=== PATIENT | male | born 1950 | race Caucasian/White ===

== ENCOUNTER 2018-06-05 09:58 | Emergency (ER) | payer OTHER, SELFPAY ==
[2018-06-05 10:02] VITALS: BP 157/81; PULSE 72; RESP 16; TEMP 36.4; O2SAT 95; BMI 26.9
--- NOTE | 2018-06-05 10:30 | CT_ITS ---
STUDY: CT ABDOMEN AND PELVIS WITH CONTRAST REASON FOR EXAM: Male, 67 years old. Right inguinal pain. History of prior right inguinal hernia repair. RADIATION DOSAGE (If Supplied By Facility): CTDIvol = ( 16.03 ) mGy, DLP = ( 932.59 ) mGycm TECHNIQUE: Transaxial images were obtained from the dome of the diaphragm to the symphysis pubis without oral contrast. 100 ml of Isovue 300 contrast was administered. Sagittal and coronal images were reconstructed. Individualized dose optimization techniques were used for this CT. COMPARISON: None. FINDINGS: The visualized lung bases are unremarkable. The visualized portions of the heart are within normal limits. Tiny cysts are seen in the right and left lobe of the liver There are multiple small gallstones. Normal spleen. Normal pancreas. Normal bilateral adrenal glands. There is a 1.3 cm cyst in the lower pole of the right kidney. Normal left kidney. Normal visualized stomach. Normal small intestine. The colon is not adequately distended although there is evidence of mucosal edema of the splenic flexure and descending colon. Early colitis should be ruled out. There are multiple colonic diverticula consistent with diverticulosis. The appendix is visualized and appears normal. There is diffuse atherosclerotic calcification of the abdominal aorta, without a demonstrated aneurysm. Normal inferior vena cava. Normal retroperitoneum. Normal urinary bladder. There are prostatic calcifications. There is a small umbilical hernia containing fat. There are degenerative changes of the visualized lumbar spine. CT/Abdomen/Pelvis W IV Cont ONLY IMPRESSION: Findings suggestive of a colitis involving the splenic flexure and descending colon. Sigmoid diverticulosis. Small hepatic cysts. Electronically Signed: Dave Waggoner MD at 12:32 EST Tel [phone], Service support ,
[2018-06-05] MEDS: 0.9% Normal Saline 1,000 ML 1000 ML IV (10:43)
[2018-06-05 10:54] LABS: Absolute Lymphocyte Count 0.95 X10^3/ul (0.83-4.51); Absolute Neutrophil Count 4.2 X10^3/uL (2.0-7.7); Basophil# 0.03 X10^3/uL; Basophil% 0.5 % (0-1); Eosinophil# 0.11 X10^3/uL; Eosinophils% 1.9 % (0-5); Hemoglobin 14.2 g/dl (13.0-16.5); Lymphocyte # 0.95 X10^3/ul (4.0); Lymphocyte % 16.7 % (19-41); Mean Corp Hgb Conc 33.8 g/gl (32-36); Mean Corpuscular Hgb 33.5 pg (27.0-32.0); Mean Corpuscular Volume 99.1 fL (80-94); Mean Platelet Vol. 9.1 fl (6.2-12.0); Monocyte# 0.36 X10^3/uL; Monocyte% 6.3 % (0-10); Neutrophil # 4.24 X10^3/uL (2.7-7.7); Neutrophil % 74.6 % (47-70); Platelet Count 176 K/mm3 (150-450); RBC Distribution Width SD 50.2 fl (35.1-43.9); Red Blood Count 4.24 M/mm3 (4.6-6.2); White Blood Count 5.7 K/mm3 (4.4-11.0)
[2018-06-05 10:58] LABS: POSITIVE COUNT NO; POSITIVE DIFFERENTIAL NO; POSITIVE MORPHOLOGY NO
[2018-06-05 11:11] LABS: ALB/GLOB Ratio 1.2 RATIO (0.9-2.4); AST(SGOT) 15 U/L (15-37); Alanine Aminotransfer ALT/SGPT 21 U/L (16-61); Albumin, Serum 3.6 g/dL (3.2-5.0); Alkaline Phosphatase 44 U/L (45-117); Anion Gap 8 (5-15); BUN 14 mg/dL (7-18); BUN/Creat Ratio 14.2 RATIO (10-20); Calcium,Total 8.7 mg/dL (8.5-10.1); Chloride 103 mmol/L (98-107); Creatinine, Serum 0.99 mg/dL (0.70-1.30); EST Glomerular Filtration Rate 80 mL/min (>60); Est Glom Filt Rate - Afr Amer 97 mL/min (>60); Estimated Creatinine Clearance 66.77 ml/min; Globulin 3.1 g/dL (2.2-4.2); Glucose 116 mg/dL (74-106); Lipase 120 U/L (73-393); Potassium 4.2 mmol/L (3.5-5.1); Protein, Total 6.7 g/dL (6.4-8.2); Sodium Level 142 mmol/L (136-145)
[2018-06-05 11:46] LABS: Bacteria 0 SEEN /hpf (None Seen); Mucous, Urine 0 SEEN /hpf (<or=2+); Red Blood Cells-Urine 0 SEEN /hpf (0-5); White Blood Cells 0 SEEN /hpf (0-5)
[2018-06-05 11:51] LABS: Color, Urine Yellow (Yellow); Glucose, Dipstick Normal (Normal); Ketone-Dipstick Negative (Negative); Leukocyte Esterase-Dipstick Negative /ul (Negative); Nitrite-Dipstick Negative (Negative); Occult Blood-Urine Negative /ul (Negative); Protein-Dipstick Negative (Negative); Specific Gravity, Urine 1.015 (1.002-1.030); Urine Bilirubin Dipstick Negative (Negative); Urine Clarity Sl. Cloudy (Clear); Urine Urobilinogen Normal (Normal)
[2018-06-05 11:54] LABS: Squamous Epithelial Cells - UA 0-5 SEEN /hpf (0-5)
--- NOTE | 2018-06-05 13:00 | ED.DCSUM_ITS ---
- ER Visit Summary Date of Service: 06/05/18 Chief Complaint: Pain History of Present Illness: The patient is a 67 M with right groin pain that started this morning. The pain radiates through to the back. He denies any injuries or inciting events. He had a history of a right inguinal hernia which was repaired in 2003. He has not had any nausea or vomiting. He has had normal bowel movements with no bleeding. No fevers. No urinary symptoms. No rash. No hip pain or injuries. No weakness or numbness. Physical Examination: Afebrile and vital signs are unremarkable. The patient appears in no acute distress. Alert and oriented. Heart regular rate and rhythm. Lungs clear. Abdomen is tender in the right inguinal region. No guarding or rebound. Hip is unremarkable. Negative logroll. Skin appears normal. Test Results: CBC, CMP, lipase, urinalysis unremarkable. CT abdomen shows colitis at the splenic flexure and descending colon. There is diverticulosis without diverticulitis. He has some hepatic cysts. Emergency Department Course and Treatment: Patient has right sided abdominal pain and he is declining pain medications. His exam and vital signs are reassuring. Workup was pursued. It showed descending colitis. He does not have pain on the left side, it is in the right inguinal region. His workup is unremarkable otherwise. No sign of sepsis. No sign of UTIs. No sign of vascular pathology. Patient's pain and CT findings give conflicting picture. I am not sure what is causing his pain. I spoke with his PCP. He did not want to start antibiotics, he would like to see the patient tomorrow. If the symptoms are getting worse, he should call in to his doctor's office. If he cannot follow up or cannot wait till his appointment, he should return to the ED for new or worsening issues. Prescribed Motrin and Zofran. Treatment Plan: As above Disposition: Discharge Impression: 1. Colitis This note was generated with [employer] dictation software. It may contain incorrect words, spelling, and punctuation that were not noted in review of the chart prior to signing ED Disposition - Plan for ED Patient: Chief Complaint: Other, Pain/Inj Referrals: Oumar Robertson DO [Primary Care Provider] -
--- NOTE | 2018-06-05 13:00 | ED.DEP ---
ED Disposition - Plan for ED Patient: Chief Complaint: Other, Pain/Inj Instructions: ED Abdominal Pain Unkn Cause Male Prescriptions: Ondansetron [Zofran Odt] 4 mg PO Q8H PRN PRN #10 tab PRN Reason: Nausea Ibuprofen [Motrin] 800 mg PO TID PRN PRN #20 tab PRN Reason: Pain Referrals: Oumar Robertson DO [Primary Care Provider] -
[2018-06-05 13:07] VITALS: BP 166/89; PULSE 79; RESP 17; O2SAT 99
--- NOTE | 2018-06-05 13:08 | ED.RN ---
IV DC'ED, CATHETER INTACT, SMALL GAUZE DRESSING PLACED. DISCHARGE INSTRUCTIONS GIVEN TO AND REVIEWED WITH PATIENT, PATIENT DENIES QUESTIONS OR CONCERNS AND VOICES UNDERSTANDING OF DISCHARGE INSTRUCTIONS. PT AMBULATES OUT OF ROOM WITHOUT DIFFICULTY.
== END 2018-06-05 13:08 | disposition home or self-care (01) ==
PROVIDERS: Emergency Provider Emergency Medicine; Family Provider Family Medicine; PCP Family Medicine
DX: K52.9 Noninfective gastroenteritis and colitis, unspecified (principal); K57.30 Diverticulosis of large intestine without perforation or abscess without bleeding; K76.89 Other specified diseases of liver; Z72.0 Tobacco use
CPT/HCPCS: 74177; 80053; 81001; 83690; 85025; 99283; Q9967

== ENCOUNTER → 2022-04-10 | Outpatient (CLI) | payer OTHER, SELFPAY ==
--- NOTE | 2022-04-10 16:32 | RAD_ITS ---
EXAM: XR LEFT FOOT COMPLETE, 3 OR MORE VIEWS CLINICAL INDICATION: FOOT PAIN TECHNIQUE: Frontal, lateral and oblique views of the left foot. This report was created using [employer] report generation technology. COMPARISON: None. FINDINGS: BONES/JOINTS: Unremarkable. No acute fracture. No subluxation. Normal alignment. Preservation of the joint space. No sclerotic or destructive changes observed. SOFT TISSUES: See below. VASCULATURE: There are thoracic aortic calcifications consistent for atherosclerotic disease. There is no dissection or hematoma noted in the thoracic aorta. RAD/Foot min 3 Views IMPRESSION: No acute findings in the left foot. Electronically Signed: Mike Solis MD at 21:28 EST ,
== END | disposition home or self-care (01) ==
LOC: MTRAD 16:30
PROVIDERS: PCP Nurse Practitioner Family; Referring Provider Nurse Practitioner Family; Visit Provider Nurse Practitioner Family
DX: M79.672 Pain in left foot (principal)
CPT/HCPCS: 73630

== ENCOUNTER → 2022-07-04 | Outpatient (CLI) | payer OTHER, SELFPAY ==
--- NOTE | 2022-07-04 13:30 | RAD_ITS ---
INDICATION: PAIN EXAMINATION/TECHNIQUE: X-RAY - LEFT XR Foot Min 3 Views COMPARISON: None. FINDINGS: SOFT TISSUES: There is soft tissue swelling of the fourth toe. No radiopaque foreign body. Vascular calcifications. BONES/JOINTS: No acute fracture or subluxation.. Normal alignment. Preservation of the joint space.. No sclerotic or destructive changes observed. RAD/Foot min 3 Views IMPRESSION: Soft tissue swelling of the fourth toe. Electronically Signed: Sam Leigh DO at 22:55 EST ,
== END | disposition home or self-care (01) ==
PROVIDERS: PCP Nurse Practitioner Family; Referring Provider Podiatrist; Visit Provider Podiatrist
DX: L02.612 Cutaneous abscess of left foot (principal)
CPT/HCPCS: 73630; 87070; 87077; 87186; 87205

== ENCOUNTER → 2022-08-03 | Outpatient (CLI) | payer OTHER, SELFPAY ==
--- NOTE | 2022-08-03 09:37 | ART_ITS ---
Reason For Study: Ulcer Procedure A bilateral lower extremity continuous wave Doppler with analog waveform analysis,segmental pressures,and ankle brachial indexes without exercise. Left Segmental Pressures Left brachial= 134mmHg. Left thigh = 50mmHg. Left calf = 69mmHg. Left posterior tibial artery = 65mmHg. Left dorsalis pedis artery = 66mmHg. Left digit = 12 mmHg. The left dorsalis pedis waveforms are monophasic. The left posterior tibial artery waveforms are monophasic. Right Segmental Pressures Right brachial= 138mmHg. Right calf = 150mmHg. Right posterior tibial artery = 114mmHg. Right dorsalis pedis artery = 80mmHg. The right dorsalis pedis waveforms are biphasic. The right posterior tibial artery waveforms are biphasic. Indices The right ankle brachial index by the dorsalis pedis is 0.58. The right ankle brachial index by the posterior tibial artery is 0.83. The left ankle brachial index by the dorsalis pedis is 0.48. The left ankle brachial index by the posterior tibial artery is 0.47. The left digital-brachial index is 0.09. . Preliminary report to Dr. Wilkes's office. VL/Lower Ext Art Exam w/o Exercis Interpretation Summary Right ANABEL 0.83, moderate arterial insufficiency. Doppler/PVR waveforms and segm ental pressures reveal infrapopliteal disease. Left ANABEL 0.48, severe arterial insufficiency. Doppler/PVR waveforms and segment al pressures reveal [id number] femoral disease Ordering Physician: Orin Wilkes Referring Physician: La Mcdonough Performed By: Jessenia Milan RVT
== END | disposition home or self-care (01) ==
LOC: CVS 09:34
PROVIDERS: PCP Nurse Practitioner Family; Referring Provider Podiatrist; Visit Provider Podiatrist
DX: I73.9 Peripheral vascular disease, unspecified (principal); L97.524 Non-pressure chronic ulcer of other part of left foot with necrosis of bone
CPT/HCPCS: 93923

== ENCOUNTER 2024-01-28 18:36 | Inpatient (IN) | payer MEDICARE, OTHER, SELFPAY ==
[2024-01-28 19:05] VITALS: BMI 30.4
[2024-01-28 19:14] VITALS: BP 161/95; PULSE 69; RESP 18; TEMP 36.9; O2SAT 96
[2024-01-28 20:00] VITALS: BMI 30.4
[2024-01-28] MEDS: Losartan Potassium 25 MG Tablet PO (21:28)
[2024-01-28] MEDS: Atorvastatin Calcium 40 MG Tablet PO (21:28)
[2024-01-28] MEDS: Senna Tablet 2 TABLET PO (21:28)
[2024-01-29 05:08] VITALS: BP 107/65; PULSE 69; RESP 16; TEMP 36.3; O2SAT 97
[2024-01-29 05:56] LABS: Hematocrit 43.3 % (40-54); Hemoglobin 14.9 g/dL (13.0-16.5); Mean Corp Hgb Conc 34.4 g/dL (32-36); Mean Corpuscular Hgb 32.4 pg (27.0-32.0); Mean Corpuscular Volume 94.1 fL (80-94); Mean Platelet Vol. 9.3 fl (6.2-12.0); Platelet Count 208 K/mm3 (150-450); RBC Distribution Width CV 13.8 % (11.6-14.6); RBC Distribution Width SD 47.6 fl (35.1-43.9); White Blood Count 5.9 K/mm3 (4.4-11.0)
[2024-01-29 06:20] LABS: ALB/GLOB Ratio 0.9 RATIO (0.9-2.4); AST(SGOT) 37 U/L (15-37); Alanine Aminotransfer ALT/SGPT 33 U/L (16-61); Albumin, Serum 3.2 g/dL (3.2-5.0); Alkaline Phosphatase 73 U/L (45-117); Anion Gap 5 (5-15); BUN 12 mg/dL (7-18); BUN/Creat Ratio 16.9 RATIO (10-20); Calcium,Total 9.1 mg/dL (8.5-10.1); Chloride 102 mmol/L (98-107); Creatinine, Serum 0.71 mg/dL (0.70-1.30); EST Glomerular Filtration Rate 115 mL/min (>60); Est Glom Filt Rate - Afr Amer 139 mL/min (>60); Globulin 3.6 g/dL (2.2-4.2); Glucose 92 mg/dL (74-106); Magnesium 2.1 mg/dL (1.6-2.6); Potassium 3.7 mmol/L (3.5-5.1); Protein, Total 6.8 g/dL (6.4-8.2); Sodium Level 135 mmol/L (136-145)
[2024-01-29] MEDS: amLODIPine 5 MG Tablet PO (07:54)
[2024-01-29] MEDS: Senna Tablet 2 TABLET PO ×2 (07:54→21:43)
[2024-01-29] MEDS: Losartan Potassium 25 MG Tablet PO ×2 (07:54→21:43)
[2024-01-29] MEDS: Aspirin E.C. 81 MG Tablet PO (07:54)
[2024-01-29] MEDS: Enoxaparin 40 MG/0.4 ML Syringe SC (07:54)
[2024-01-29] MEDS: Clopidogrel Bisulfate 75 MG Tablet PO (07:54)
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
--- NOTE | 2024-01-29 12:01 | REHABEVAL_ITS ---
Admission Information Primary Diagnosis:: Poststroke debility Status Changes from Prescreening?: No changes Identified Actual Problem List:: Skin Intergrity, Mobility Impaired, Self Care Deficit, Know.Dfct/Disease Process, BP, Hypertension, Fluid Change-Dehydration and Alteration-Leisure Activ. Potential Problem List:: DVT, Bleeding, Infection, UTI, Aspiration, Falls, Skin Integrity and Depression Risk of Complications DVT: LMWH, APOLONIA Hose and - Bleeding: Monitor Lab Values, Nursing to Teach Precautions for anti-coagulation therapy., Wound, if applicable, to be assessed every shift. and Stroke patients assessed for lethargy or change in status. Infection: Clinical Staff to Monitor for S/S of infection: and S/S of infection include fever, redness, warmth, etc. Urinary Tract Infection: Monitor for frequency, burning, discomfort, or incontinence. and Nursing will obtain urine sample for urinalysis and C&S when ordered. Aspiration: Clinical staff will monitor for coughing, drooling, congestion., Speech will evaluate swallowing and dsyphasia. and Nursing will monitor patient swallowing during meals. Falls: Patient will be evaluated for Fall Precautions and Patient will be placed on Fall Precautions as indicated per protocol. Skin Breakdown: Nursing will assess skin daily using assessment tool. and Nursing will place on Skin Breakdown Precautions as indicated. Pain: Clinical staff will assess patient's pain level per protocol., Medications will be given, if needed, and the pain level reassessed. and Other methods: Massage, distraction, decrease stimulus, etc. used PRN. Plan of Care Patient requires physician specializing in physical medicine and rehab oversight to provide close medical supervision of rehab issues including: Pain Management, Sleep Problems, Bowel and Bladder, Medical and co-morbidity Management, DVT prophylaxis, Rehabilitation Leadership and Coordination of treatment team Patient needs Physical Therapy: For a minimum of 1 hour and At least 5 out of 7 days Patient needs Physical Therapy to improve:: Mobility, Strengthening, Transfers, Stretching, ROM, Endurance, Stairs, Gait and Balance Patient needs Occupational Therapy: For a minimum of 1 hour and At least 5 out of 7 days Patient needs Occupational Therapy to improve ADL's incl.: Eating, Grooming, Bathing, Dressing, Toileting, Toilet transfers, Community Reintegration, Higher functioning activities, Household tasks, Adaptive Equipment, Splinting and Other activities as determined Patient requires speech therapy: For a minimum of 1 hour and At least 5 out of 7 days Patient requires speech therapy for: Swallowing, Cognition, Language Skills and Compensatory Strategies Patient requires 24/7 Rehabilitation Nursing for: Pain Issues, Identifying and preventing risk factors, Monitoring and reporting current medical conditions, Assisting with ambulation, transfer, and all ADL's, Teaching patients about disease process and medications, Family teaching, Providing safe environment, Bowel and Bladder Issues, Skin integrity and Medication Management Patient needs Brake Linings Coater/ Case Management for: Discharge Planning, Arranging Home Equipment or Services and Family Interventions Patient needs Dietary and Nutrition Services for: Adequate Nutrition, Nutritional Supplements and Nutritional Education Goals Goals Patient will remain: free from falls Patient will perform eating at: MOD I level of assist. Patient will perform bed mobility at: MOD I level of assist. Patient will complete transfers from bed to chair at: MOD I level of assist. Patient will ambulate: - (350 feet with least restrictive device at supervision on various surfaces) Patient will complete upper body dressing at: MOD I level of assist. Patient will complete lower body dressing at: MOD I level of assist. (With adaptive equipment as needed) Patient will complete toilet transfer at: MOD I level of assist. Patient will complete toileting at: MOD I level of assist. Patient will perform bathing at: MOD I level of assist. (He will complete upper body bathing at independent level and lower body bathing at mod I with adaptive equipment as needed to increase independence with self-care.) Patient will perform Tub/Shower transfer at: - (Supervision for the first 1 to 2 weeks postdischarge) Patient will complete grooming at: MOD I level of assist. (While standing at the sink) Patient will complete home management skills at: MOD I level of assist. Patient will achieve: - (He will ascend/descend 5 steps with 1 handrail at standby assist to allow access to his home entrance.) Patient will have pain level of: of 3 or less Patient's skin will: remain intact Patient will receive: adequate nutrition. Discharge Planning Pt Prognosis for Sig. Practical Improv. w/in Reasonable Time: Good Estimated Length of stay (days): 28 Anticipated D/C Destination: Home with Outpt Therapy Was Preadmission Assessment Accurate?: Yes
[2024-01-29 15:28] VITALS: BMI 30.4
[2024-01-29 18:00] VITALS: BP 132/86; PULSE 79; RESP 18; TEMP 36.6; O2SAT 95
[2024-01-29 21:35] VITALS: BP 131/77; PULSE 75; RESP 16; O2SAT 96
[2024-01-29] MEDS: Atorvastatin Calcium 40 MG Tablet PO (21:43)
[2024-01-29 22:00] VITALS: PULSE 75; RESP 16; O2SAT 95
[2024-01-30] MEDS: Enoxaparin 40 MG/0.4 ML Syringe SC (05:50)
[2024-01-30 06:00] VITALS: BP 123/77; PULSE 79; RESP 18; TEMP 36.5; O2SAT 94
[2024-01-30 07:17] VITALS: O2SAT 97
[2024-01-30] MEDS: Losartan Potassium 25 MG Tablet PO ×2 (08:37→20:37)
[2024-01-30] MEDS: Aspirin E.C. 81 MG Tablet PO (08:37)
[2024-01-30] MEDS: amLODIPine 5 MG Tablet PO (08:37)
[2024-01-30] MEDS: Clopidogrel Bisulfate 75 MG Tablet PO (08:37)
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
[2024-01-30 13:46] VITALS: BMI 30.4
[2024-01-30 18:00] VITALS: BP 137/79; PULSE 83; RESP 16; TEMP 37.2; O2SAT 94
[2024-01-30] MEDS: Atorvastatin Calcium 40 MG Tablet PO (20:36)
[2024-01-30 20:47] VITALS: BMI 30.4
[2024-01-30 22:00] VITALS: PULSE 74; RESP 15; O2SAT 95
[2024-01-31] MEDS: Enoxaparin 40 MG/0.4 ML Syringe SC (05:11)
[2024-01-31 06:00] VITALS: BP 127/66; PULSE 82; RESP 16; TEMP 36.6; O2SAT 95
[2024-01-31] MEDS: Aspirin E.C. 81 MG Tablet PO (08:01)
[2024-01-31] MEDS: Losartan Potassium 25 MG Tablet PO ×2 (08:01→21:50)
[2024-01-31] MEDS: amLODIPine 5 MG Tablet PO (08:05)
[2024-01-31] MEDS: Clopidogrel Bisulfate 75 MG Tablet PO (08:06)
[2024-01-31] MEDS: Senna Tablet 2 TABLET PO ×2 (08:06→21:50)
[2024-01-31 17:00] VITALS: BMI 30.4
[2024-01-31 18:00] VITALS: BP 147/79; PULSE 80; RESP 16; TEMP 37.1; O2SAT 98
[2024-01-31] MEDS: Atorvastatin Calcium 40 MG Tablet PO (21:50)
[2024-01-31 22:00] VITALS: PULSE 80; RESP 16; O2SAT 96
[2024-01-31 23:52] VITALS: BMI 30.4
[2024-02-01 06:00] VITALS: BP 128/90; PULSE 78; RESP 15; TEMP 36.8; O2SAT 96
[2024-02-01] MEDS: Enoxaparin 40 MG/0.4 ML Syringe SC (06:14)
[2024-02-01] MEDS: Clopidogrel Bisulfate 75 MG Tablet PO (08:33)
[2024-02-01] MEDS: Aspirin E.C. 81 MG Tablet PO (08:33)
[2024-02-01] MEDS: Losartan Potassium 25 MG Tablet PO ×2 (08:34→21:38)
[2024-02-01] MEDS: amLODIPine 5 MG Tablet PO (08:34)
[2024-02-01 09:46] VITALS: PULSE 74; RESP 14; O2SAT 95
[2024-02-01 14:01] VITALS: BMI 30.4
[2024-02-01 18:00] VITALS: BP 141/74; PULSE 78; RESP 16; TEMP 36.6; O2SAT 97
[2024-02-01] MEDS: Senna Tablet 2 TABLET PO (21:38)
[2024-02-01] MEDS: Atorvastatin Calcium 40 MG Tablet PO (21:38)
[2024-02-02 00:26] VITALS: BMI 30.4
[2024-02-02] MEDS: Enoxaparin 40 MG/0.4 ML Syringe SC (05:36)
[2024-02-02 05:41] VITALS: BP 137/82; PULSE 69; RESP 17; TEMP 36.3; O2SAT 98
[2024-02-02] MEDS: Clopidogrel Bisulfate 75 MG Tablet PO (07:39)
[2024-02-02] MEDS: Losartan Potassium 25 MG Tablet PO ×2 (07:39→20:21)
[2024-02-02] MEDS: Aspirin E.C. 81 MG Tablet PO (07:39)
[2024-02-02] MEDS: amLODIPine 5 MG Tablet PO (07:39)
[2024-02-02 10:47] VITALS: BMI 30.4
[2024-02-02 17:25] VITALS: BP 142/73; PULSE 72; RESP 16; TEMP 36.9; O2SAT 92
[2024-02-02] MEDS: Atorvastatin Calcium 40 MG Tablet PO (20:22)
[2024-02-03] MEDS: Enoxaparin 40 MG/0.4 ML Syringe SC (05:24)
[2024-02-03 05:25] VITALS: BP 119/86; PULSE 78; RESP 15; TEMP 36.6; O2SAT 95
[2024-02-03 07:23] LABS: Anion Gap 5 (5-15); BUN 13 mg/dL (7-18); BUN/Creat Ratio 16.8 RATIO (10-20); Calcium,Total 8.9 mg/dL (8.5-10.1); Chloride 104 mmol/L (98-107); Creatinine, Serum 0.77 mg/dL (0.70-1.30); EST Glomerular Filtration Rate 104 mL/min (>60); Est Glom Filt Rate - Afr Amer 126 mL/min (>60); Glucose 97 mg/dL (74-106); Potassium 3.8 mmol/L (3.5-5.1); Sodium Level 136 mmol/L (136-145)
[2024-02-03] MEDS: Losartan Potassium 25 MG Tablet PO ×2 (08:00→21:17)
[2024-02-03] MEDS: Clopidogrel Bisulfate 75 MG Tablet PO (08:01)
[2024-02-03] MEDS: amLODIPine 5 MG Tablet PO (08:01)
[2024-02-03] MEDS: Aspirin E.C. 81 MG Tablet PO (08:01)
[2024-02-03 12:36] VITALS: BMI 30.4
[2024-02-03 18:00] VITALS: BP 139/71; PULSE 72; RESP 17; TEMP 36.8; O2SAT 97
[2024-02-03] MEDS: Atorvastatin Calcium 40 MG Tablet PO (21:21)
[2024-02-03] MEDS: Senna Tablet 2 TABLET PO (21:22)
[2024-02-03 22:00] VITALS: PULSE 74; RESP 16; O2SAT 96
[2024-02-03 22:32] VITALS: BMI 30.4
[2024-02-04] MEDS: Enoxaparin 40 MG/0.4 ML Syringe SC (04:47)
[2024-02-04 05:20] VITALS: BP 123/77; PULSE 75; RESP 16; TEMP 36.4; O2SAT 95
[2024-02-04] MEDS: Losartan Potassium 25 MG Tablet PO ×2 (08:04→21:00)
[2024-02-04] MEDS: Clopidogrel Bisulfate 75 MG Tablet PO (08:04)
[2024-02-04] MEDS: amLODIPine 5 MG Tablet PO (08:04)
[2024-02-04] MEDS: Aspirin E.C. 81 MG Tablet PO (08:05)
[2024-02-04 09:04] VITALS: BMI 30.4
--- NOTE | 2024-02-04 10:50 | CASEMGMT ---
Social Work IDT met with patient and exwife, then conference call with son, for Team meeting. Discussed patient's progress in PT/OT/ST/SN. Educated to Medicare benefit with approval of 13 days with DC 02/09. IDT recommending 24/ care at DC d/t safety awareness and fall risk. SW educated to nonskilled HHC vs SNF care at DC and offered resources with either option once family has made a decision. SW educated to part A covers HHC but only part B covers OP therapy. Educated to SNF coverage with benefit. Exwife and son to discuss and notify this worker to finalize DC plans by the end of the week. Ex- stated she will likely have him DC to her home to provide that care. Offered therapy training - ex agreed and scheduled for 02/05 at 0900. SW will continue to follow. RAVINDRA CartagenaW
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
[2024-02-04 18:00] VITALS: BP 140/62; PULSE 78; RESP 16; TEMP 36.9; O2SAT 98
[2024-02-04] MEDS: Atorvastatin Calcium 40 MG Tablet PO (20:45)
[2024-02-04] MEDS: Senna Tablet 2 TABLET PO (21:00)
[2024-02-04 21:08] VITALS: BMI 30.4
[2024-02-04 21:57] VITALS: PULSE 69; O2SAT 96
[2024-02-04 22:00] VITALS: RESP 16; O2SAT 95
[2024-02-05 06:00] VITALS: BP 135/80; PULSE 89; RESP 16; TEMP 36.4; O2SAT 96; BMI 30.1
[2024-02-05] MEDS: Enoxaparin 40 MG/0.4 ML Syringe SC (06:14)
[2024-02-05] MEDS: Losartan Potassium 25 MG Tablet PO ×2 (08:19→20:52)
[2024-02-05] MEDS: Senna Tablet 2 TABLET PO ×2 (08:19→20:52)
[2024-02-05] MEDS: buPROPion (XL) 150 MG TABLET.XL PO (08:19)
[2024-02-05] MEDS: Aspirin E.C. 81 MG Tablet PO (08:19)
[2024-02-05] MEDS: amLODIPine 5 MG Tablet PO (08:19)
[2024-02-05] MEDS: Clopidogrel Bisulfate 75 MG Tablet PO (08:19)
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
[2024-02-05 12:37] VITALS: BMI 30.1
--- NOTE | 2024-02-05 13:27 | CASEMGMT ---
Social Work SW met with pt to discuss advance directives. SW explained living will and health care POA. Pt does not want to complete documents at this time. CHRISTIE provided pt with the advance care planning booklet for review and informed pt if he changes his mind and would like to complete documents, SW can assist. CHRISTIE phone number provided to pt to call if he would like to complete advance directives. Pt expressing understanding. SATURNINO Bran
[2024-02-05 17:22] VITALS: BP 116/75; PULSE 71; RESP 16; TEMP 37.1; O2SAT 97
[2024-02-05 20:47] VITALS: BMI 30.1
[2024-02-05] MEDS: Atorvastatin Calcium 40 MG Tablet PO (20:52)
[2024-02-05 22:00] VITALS: PULSE 76; RESP 15; O2SAT 96
[2024-02-06 06:00] VITALS: BP 120/70; PULSE 71; RESP 16; TEMP 36.3; O2SAT 96
[2024-02-06] MEDS: Enoxaparin 40 MG/0.4 ML Syringe SC (06:33)
[2024-02-06] MEDS: Clopidogrel Bisulfate 75 MG Tablet PO (08:06)
[2024-02-06] MEDS: Aspirin E.C. 81 MG Tablet PO (08:06)
[2024-02-06] MEDS: buPROPion (XL) 150 MG TABLET.XL PO (08:07)
[2024-02-06] MEDS: Losartan Potassium 25 MG Tablet PO ×2 (08:07→20:54)
[2024-02-06] MEDS: amLODIPine 5 MG Tablet PO (08:07)
[2024-02-06] MEDS: Senna Tablet 2 TABLET PO (08:08)
--- NOTE | 2024-02-06 13:29 | CASEMGMT ---
Addendum entered by Georgina Gale 02/06/24 15:16: [facility] cannot accept. [facility] can accept. Addendum entered by Georgina Gale 02/06/24 14:08: Son provided [facility] preferences: [facility], [facility]. Referrals made via [facility]. Original Note: Social Work SW met with patient, ex- and two sons in room following therapy training. EXwife agreeable to take pt home with her and care for him. Son, Kevin, did express some concerns with mother taking on too much. SW encouraged exwife to set mental boundaries to not push her limits of caring for pt. SW to coordinate [facility] clinical social work therapist if home is not successful. Son appreciative. SW offered list of [facility] agency providers with quality and resource data via [facility]Port Guide to select preferences. Son requested text link. SW sent link. Pt also needs FWW at [place]. Pt also requesting to now complete advanced directives. SW gathered information from family and will complete prior to DC. SW to coordinate DC needs and reiterated referral to [facility]. Plan: DC home to ex-'s house 02/09, [facility] PT/OT/ST/SN/SW, [facility]WW Georgina Gale, [employer]
--- NOTE | 2024-02-06 15:16 | CASEMGMT ---
Social Work SW completed advanced directives with patient. Pt named son, Kevin, as primary and other son, Zion, as secondary. Original and copy provided to pt. Copies placed on chart. RAVINDRA Cartagena
[2024-02-06 16:22] VITALS: BMI 30.1
[2024-02-06 17:03] VITALS: BP 120/68; PULSE 75; RESP 17; TEMP 36.2; O2SAT 92
[2024-02-06] MEDS: Atorvastatin Calcium 40 MG Tablet PO (20:54)
[2024-02-07 03:15] VITALS: BMI 30.1
[2024-02-07] MEDS: Enoxaparin 40 MG/0.4 ML Syringe SC (04:35)
[2024-02-07 06:00] VITALS: BP 116/73; PULSE 81; RESP 17; TEMP 36.3; O2SAT 96
[2024-02-07] MEDS: Aspirin E.C. 81 MG Tablet PO (08:19)
[2024-02-07] MEDS: Losartan Potassium 25 MG Tablet PO ×2 (08:19→22:19)
[2024-02-07] MEDS: buPROPion (XL) 150 MG TABLET.XL PO (08:19)
[2024-02-07] MEDS: amLODIPine 5 MG Tablet PO (08:19)
[2024-02-07] MEDS: Clopidogrel Bisulfate 75 MG Tablet PO (08:19)
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
--- NOTE | 2024-02-07 13:48 | CASEMGMT ---
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 Addendum entered by Georgina Gale 02/10/24 16:12: Script, testing and documentation for DME needs sent to [facility] via [employer]. FWW was delivered to pt prior to DC. Pt/ aware to contact [facility] for delivery of concentrator once home. Original Note: Social Work Dr phoned this worker to notify pt will need overnight O2 at DC. Sleep study will be scheduled after DC. Overnight trending pulse ox ordered by nursing. SW to coordinate on 02/09 and refer to [facility]. RAVINDRA CartagenaW
[2024-02-07 15:24] VITALS: BMI 30.1
[2024-02-07 17:29] VITALS: BP 124/70; PULSE 76; RESP 17; TEMP 36.8; O2SAT 97
[2024-02-07] MEDS: Atorvastatin Calcium 40 MG Tablet PO (22:19)
[2024-02-07 23:38] VITALS: BMI 30.1
[2024-02-08 05:25] VITALS: BP 111/62; PULSE 69; RESP 18; TEMP 36.5; O2SAT 94
[2024-02-08] MEDS: Enoxaparin 40 MG/0.4 ML Syringe SC (05:28)
[2024-02-08 07:27] LABS: Hematocrit 42.4 % (40-54); Hemoglobin 14.2 g/dL (13.0-16.5); Mean Corp Hgb Conc 33.5 g/dL (32-36); Mean Corpuscular Hgb 31.8 pg (27.0-32.0); Mean Corpuscular Volume 94.9 fL (80-94); Mean Platelet Vol. 9.5 fl (6.2-12.0); Platelet Count 233 K/mm3 (150-450); RBC Distribution Width CV 13.7 % (11.6-14.6); RBC Distribution Width SD 47.9 fl (35.1-43.9); Red Blood Count 4.47 M/mm3 (4.6-6.2); White Blood Count 6.3 K/mm3 (4.4-11.0)
[2024-02-08 07:50] LABS: Anion Gap 5 (5-15); BUN 14 mg/dL (7-18); BUN/Creat Ratio 16.5 RATIO (10-20); Calcium,Total 9.2 mg/dL (8.5-10.1); Chloride 103 mmol/L (98-107); Creatinine, Serum 0.85 mg/dL (0.70-1.30); EST Glomerular Filtration Rate 94 mL/min (>60); Est Glom Filt Rate - Afr Amer 114 mL/min (>60); Glucose 97 mg/dL (74-106); Potassium 3.9 mmol/L (3.5-5.1); Sodium Level 135 mmol/L (136-145)
[2024-02-08] MEDS: amLODIPine 5 MG Tablet PO (09:58)
[2024-02-08] MEDS: buPROPion (XL) 150 MG TABLET.XL PO (09:58)
[2024-02-08] MEDS: Clopidogrel Bisulfate 75 MG Tablet PO (09:58)
[2024-02-08] MEDS: Losartan Potassium 25 MG Tablet PO ×2 (09:59→21:15)
[2024-02-08] MEDS: Aspirin E.C. 81 MG Tablet PO (09:59)
[2024-02-08 10:01] VITALS: BP 114/69; PULSE 75
[2024-02-08 12:01] VITALS: BMI 30.1
[2024-02-08 18:00] VITALS: BP 125/71; PULSE 74; RESP 18; TEMP 36.2; O2SAT 96
[2024-02-08] MEDS: Atorvastatin Calcium 40 MG Tablet PO (21:15)
[2024-02-08 22:14] VITALS: BMI 30.1
[2024-02-09] MEDS: Enoxaparin 40 MG/0.4 ML Syringe SC (05:06)
[2024-02-09 05:35] VITALS: BP 109/69; PULSE 77; RESP 18; TEMP 36.6; O2SAT 95
[2024-02-09 08:35] VITALS: BP 123/64; PULSE 87
[2024-02-09] MEDS: buPROPion (XL) 150 MG TABLET.XL PO (08:51)
[2024-02-09] MEDS: Aspirin E.C. 81 MG Tablet PO (08:52)
[2024-02-09] MEDS: Losartan Potassium 25 MG Tablet PO ×2 (08:52→21:08)
[2024-02-09] MEDS: Clopidogrel Bisulfate 75 MG Tablet PO (08:52)
[2024-02-09] MEDS: amLODIPine 5 MG Tablet PO (08:53)
[2024-02-09 09:58] VITALS: BMI 30.1
[2024-02-09 18:00] VITALS: BP 117/77; PULSE 77; RESP 16; TEMP 36.2; O2SAT 95
[2024-02-09] MEDS: Atorvastatin Calcium 40 MG Tablet PO (21:08)
[2024-02-09 21:47] VITALS: PULSE 83; O2SAT 96
[2024-02-10 00:09] VITALS: BMI 30.1
[2024-02-10] MEDS: Enoxaparin 40 MG/0.4 ML Syringe SC (05:20)
[2024-02-10 06:00] VITALS: BP 119/65; PULSE 77; RESP 17; TEMP 36.7; O2SAT 95
[2024-02-10] MEDS: Losartan Potassium 25 MG Tablet PO (07:57)
[2024-02-10] MEDS: Clopidogrel Bisulfate 75 MG Tablet PO (07:57)
[2024-02-10] MEDS: Aspirin E.C. 81 MG Tablet PO (07:57)
[2024-02-10] MEDS: amLODIPine 5 MG Tablet PO (07:57)
[2024-02-10] MEDS: buPROPion (XL) 150 MG TABLET.XL PO (07:57)
--- NOTE | 2024-02-10 10:30 | PCM.PROGNOTE ---
Subjective Subjective Afebrile VSS -blood pressure is within goal and the heart rate is within normal limits. Maintaining appropriate oxygen saturation on RA Oral intake - FOOD good FLUIDS good Discussed with nursing - no problems that need addressed Reviewed the THERAPY notes Medication list reviewed. Tolerating Wellbutrin with no adverse side effects. Objective Data Objective Data Vital Signs: Vital Signs Temp Pulse Resp BP Pulse Ox O2 Del Method O2 Flow Rate 98.1 F 77 17 119/65 95 Room Air 0 02/10/24 06:00 02/10/24 06:00 02/10/24 06:00 02/10/24 06:00 02/10/24 06:00 02/10/24 06:00 02/09/24 21:47 FiO2 21 02/09/24 21:47 Oxygen Flow Rate (L/min) 0 Oxygen Delivery Method Room Air Weight: 191 lb 12.835 oz Body Mass Index (BMI) 30.1 Intake & Output: Intake and Output for Last 24 Hours 02/08/24 02/09/24 02/10/24 23:59 23:59 23:59 Intake Total 2014 1400 / 1400 480 / 480 Output Total 1625 / 1625 1237 / 1237 325 / 325 Balance 390 / 390 163 / 163 155 / 155 Lab / Micro Data 02/08/24 06:54 02/08/24 06:54 Assessment & Plan Assessment/Plan PLAN: Plan 1. Continue therapy 2. Patient is unsafe to use a cane and requires a walker for ambulation in the house in the community. 3. Patient requires 2 L/min of oxygen via nasal cannula due to obstructive sleep apnea. He requires a concentrator and portable O2 tanks to allow him to be mobile in the home in the community. O2 will improve the patient's condition in the home setting until he can be treated for obstructive sleep apnea with PAP therapy. Overnight trending pulse ox done on 02/09/2024 had 5 desaturation events lasting greater than 60 seconds each. He is observed having apneic episodes while sleeping.
--- NOTE | 2024-02-10 12:25 | DCINST_ITS ---
Discharge Instructions Diet Discharge Diet: - (Low-fat low-salt) Activity Discharge Activity: May Not Drive, May Shower and - (Use of cane when ambulating) Weight Bearing Status: Full weight bearing Keep extremity elevated above heart level: Legs Dressing / Incision Call your doctor if you observe: Fever of 101 or Higher, Inability to urinate, Shortness of breath, Fainting spells, Swelling in the ankles, Chest pain, Increased palpitations (irregular heartbeat), Calf discomfort and Uncontrolled pain Follow Up Care Please Follow Up With: La Mcdonough, [employer] When: You also have an appt to follow up with Dr. Tejada from neurology for the stroke. The sleep lab will be contacting you to schedule an appt for a overnight sleep study so we can get your sleep apnea treated. Test Results: Test results from this visit will be discussed in further detail at your follow- up appointment, if applicable. Discharge Plan Admission Admit Date/Time: 01/28/24 18:36 Primary Reason for Your Visit: Post stroke debility Attending Provider: Tish Perry Primary Care Provider: La Mcdonough Instructions Patient Instructions: Understanding Oxygen Therapy, What Are Snoring and Sleep Apnea?, Discharge Instructions for Stroke, AFib, ED Sleep Apnea, Obstructive Additional Instructions / Restrictions: 1. It is IMPERATIVE that you follow up with a primary care doctor regularly to prevent additional strokes going forward. Because you have had a stroke and you have high BP, high cholesterol and you have smoked for many years you are also at significantly increased risk for heart attacks. You MUST take your medications exactly as prescribed. It is very important that you never smoke again. I am sending you home with a nicotine patch. There are other medications that can help with smoking cessation. We started you on one of the other medications as well since you continued to have cravings for cigarettes despite the nicotine patch. The other medication is called bupropion (also called Wellbutrin) and you take it once a day in the morning. This medication is actually an antidepressant that has good results and helping people with addictions stop their addiction. You have not had any adverse side effects from this medication. you will use the 21 mg patch for 2 weeks and then decrease to the 14 mg patch for 2 weeks and then decrease to the 7 mg patch for 1 week. the hospital has a smoking cessation program if you need help stopping. Call the hospital at [phone] and ask to be connected to the smoking cessation coordinator. 2. Because you have had a stroke and you have significant impairment in your cognitive abilities you will not be allowed to drive. there is a drivers rehab program at [facility] in [place] and they evaluate patients who have had strokes AFTER they have been rehabilitated to see if they may be able to drive again. The social work assistant has made a referral to the program for you and it will be good for 90 days. When your outpatient speech therapist feels you may be able to drive a car again please schedule an appointment at [facility] to be evaluated. 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 3. I have watched you sleeping and you quit breathing for longer than a minute at a time when sleeping. We checked your oxygen overnight and the oxygen drops low while you are sleeping. You will need to go home on oxygen ANYTIME you are sleeping. If you smoke while the oxygen is on it could cause a fire so no smoking while the oxygen is on. The sleep lab will be calling you to schedule a sleep study. you will come to the hospital in the evening and have the test overnight and then go home in the AM. you will then have a follow up appt with a sleep doctor to prescribe a CPAP unit for you if needed. Untreated sleep apnea increases stroke risk. It also increases the risk for a problem with the rhythm of the heart called AFIB (also called atrial fibrillation). Atrial fibrillation also increases risk for stroke. We are sending you home with a requisition for a campus monitor. It will be sent to you in the mail and it will be checking for atrial fibrillation. After you return the monitor you will have an appt with a comfort filler to discuss the results. 4. you will need to have your doctor check a liver panel and a lipid panel in 2-4 weeks. 5. your liver blood tests are abnormal. this may be due to the fact that you have high cholesterol and you have fatty deposition in the liver. It could also be related to alcohol use. I suggest you talk to your doctor about getting an ultra sound or a CT scan of the liver. 6. If you or your family have any questions after you leave rehab please do not hesitate to call me. OFFICE: [phone] CELL: [phone] Discharge Orders/Prescriptions Prescriptions: New nicotine 21 mg/24 hr Patch 24 Hour 21 mg transdermal DAILY Qty: 14 0RF bupropion HCl 150 mg Tablet Extended Release 24 Hr 150 mg PO DAILY Qty: 30 0RF nicotine 14 mg/24 hr patch 24 hour 1 patch transdermal DAILY Qty: 14 0RF nicotine 7 mg/24 hr patch 24 hour 1 patch transdermal Q24H Qty: 7 0RF Continued aspirin [Adult Low Dose Aspirin] 81 mg tablet,delayed release (DR/EC) 81 mg PO DAILY clopidogrel 75 mg tablet 75 mg PO DAILY Qty: 14 0RF Rx Instructions: take this med once a day until gone and then you will no longer need it. amlodipine 5 mg tablet 5 mg PO DAILY Qty: 30 0RF losartan [Cozaar] 25 mg tablet 25 mg PO BID Qty: 60 0RF Changed atorvastatin 80 mg tablet 40 mg PO QHS Qty: 30 0RF Discontinued sennosides [Senokot] 8.6 mg tablet 17.2 mg PO BID enoxaparin [Lovenox] 40 mg/0.4 mL syringe 40 mg subcut DAILY Referrals / Follow Up: Kike Tejada [Other] - 02/28/24 10:45 am (Neurology) Heart,Monitor [Other] (A Heart Monitor will be mailed to you) La Mcdonough NP-C [Primary Care Provider] - 02/17/24 9:30 am (Take insurance cards and ID to update with facility ) Disposition Disposition (needs filled in before D/C Order can be placed): Home Health Service
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
--- NOTE | 2024-02-10 15:22 | NURSING ---
discharged home with family. discharge instructions, medications and appointments reviewed with pt and family. denies questions or concerns
[2024-02-10 15:23] VITALS: BP 119/65; PULSE 77; RESP 17; TEMP 36.7; O2SAT 95
[2024-02-10 15:25] VITALS: BMI 30.1
== END 2024-02-10 15:27 | disposition home health service (06) | DRG 57 ==
PROVIDERS: Admitting Provider Internal Medicine; PCP Nurse Practitioner Family; Visit Provider Internal Medicine
DX: I69.354 Hemiplegia and hemiparesis following cerebral infarction affecting left non-dominant side (principal); E87.1 Hypo-osmolality and hyponatremia; R06.81 Apnea, not elsewhere classified; I73.9 Peripheral vascular disease, unspecified; I10 Essential (primary) hypertension; I69.322 Dysarthria following cerebral infarction; E66.9 Obesity, unspecified; H53.47 Heteronymous bilateral field defects; M19.90 Unspecified osteoarthritis, unspecified site; E78.5 Hyperlipidemia, unspecified; I77.811 Abdominal aortic ectasia; F17.210 Nicotine dependence, cigarettes, uncomplicated; I69.398 Other sequelae of cerebral infarction; I69.392 Facial weakness following cerebral infarction; S22.42XD Multiple fractures of ribs, left side, subsequent encounter for fracture with routine healing; R73.03 Prediabetes; R32 Unspecified urinary incontinence; Z68.30 Body mass index [BMI] 30.0-30.9, adult; V89.2XXD Person injured in unspecified motor-vehicle accident, traffic, subsequent encounter; Z79.82 Long term (current) use of aspirin; Z79.899 Other long term (current) drug therapy; N40.0 Benign prostatic hyperplasia without lower urinary tract symptoms
CPT/HCPCS: 36415; 80048; 80053; 83735; 84100; 85027; 92507; 92523; 92526; 92610; 94668; 94762; 97110; 97112; 97116; 97129; 97130; 97162; 97166; 97530; 97535; 97802; 97803; 99406

== ENCOUNTER 2024-03-04 19:56 | Observation (INO) | payer MEDICARE, OTHER, SELFPAY ==
[2024-03-04 19:57] VITALS: BP 100/61; BP 113/60; PULSE 86; PULSE 87; RESP 21; TEMP 36.4; O2SAT 93; O2SAT 94; BMI 28.6
--- NOTE | 2024-03-04 20:01 | CT_ITS ---
STUDY: CT BRAIN WITHOUT CONTRAST REASON FOR EXAM: Male, 73 years old. syncope, left facial droop RADIATION DOSAGE (If Supplied By Facility): CTDIvol = ( 44.99 ) mGy, DLP = ( 914.22 ) mGycm TECHNIQUE: Transaxial CT imaging of the brain was performed without administration of intravenous contrast material. Individualized dose optimization techniques were used for this CT. COMPARISON: No relevant priors. FINDINGS: Normal soft tissue structures. Normal calvarium. Prominent ventricles and extra-axial spaces with mild atrophy. Right cerebral encephalomalacia. Normal white matter tracts of the cerebral hemispheres. Normal basal ganglia and thalami. Normal brainstem. Normal cerebellum. There is no intracranial hemorrhage. There are no findings of an acute ischemic infarction. Normal visualized paranasal sinuses. CT/Brain/Head without Contrast IMPRESSION: Age-related and chronic changes of the brain. Electronically Signed: Sam Leigh DO at 21:44 EDT ,
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
[2024-03-04 20:13] LABS: Absolute Lymphocyte Count 1.54 X10^3/uL (0.83-4.51); Absolute Neutrophil Count 6.1 X10^3/uL (2.0-7.7); Basophil# 0.05 X10^3/uL; Basophil% 0.6 % (0-1); Eosinophil# 0.14 X10^3/uL; Eosinophils% 1.6 % (0-5); Hemoglobin 14.4 g/dL (13.0-16.5); Lymphocyte # 1.54 X10^3/ul (0.83-4.51); Lymphocyte % 18.1 % (19-41); Mean Corp Hgb Conc 34.3 g/dL (32-36); Mean Corpuscular Hgb 31.9 pg (27.0-32.0); Mean Corpuscular Volume 92.9 fL (80-94); Mean Platelet Vol. 9.3 fl (6.2-12.0); Monocyte# 0.62 X10^3/uL; Monocyte% 7.3 % (0-10); NRBC Flagged by Analyzer 0 % (0-5); Neutrophil # 6.12 X10^3/uL (2.7-7.7); Platelet Count 184 K/mm3 (150-450); RBC Distribution Width CV 13.7 % (11.6-14.6); RBC Distribution Width SD 46.8 fl (35.1-43.9); Red Blood Count 4.52 M/mm3 (4.6-6.2); White Blood Count 8.5 K/mm3 (4.4-11.0)
[2024-03-04] MEDS: 0.9% Normal Saline (500mL Bag) 500 ML 999 ML IV (20:14)
[2024-03-04 20:18] LABS: Allen Test Positive; Base Excess -1 mmol/L (-2 to +2); Bicarbonate 23.4 mmol/L (22-26); Blood Gas Specimen Type ART; Mode Not entered; O2 Delivery Device Room Air; PO2 71 mmHG (75-100); SITE R Radial; SO2 95 % (95-99); Total Carbon Dioxide 25 mmol/L; pH 7.43 (7.35-7.45)
[2024-03-04 20:39] LABS: D-Dimer Quantitative (DVT/PE) 1.48 FEU/ug/m (0.27-0.49)
--- NOTE | 2024-03-04 20:40 | CT_ITS ---
STUDY: CTA CHEST REASON FOR EXAM: Male, 73 years old. syncope, elevated d-dimer RADIATION DOSAGE (If Supplied By Facility): CTDIvol = ( 13.52 ) mGy, DLP = ( 552.54 ) mGycm TECHNIQUE: The examination was performed with the intravenous administration of IV 75mL Isovue-370. Post-processing of the angiographic images was performed, with multiplanar reformation and 3D reconstruction. The protocol utilizes one or more of the following dose reduction techniques: automated exposure control, adjustment of mA and/or kV according to patient size,and/or use of iterative reconstruction technique. COMPARISON: FINDINGS: Normal enhancement of the main pulmonary artery and right and left pulmonary arteries. Normal enhancement of the bilateral peripheral pulmonary arteries. There is no demonstrated pulmonary embolism. Normal thoracic aorta and visualized great vessels. There is no demonstrated aortic dissection. Normal heart and pericardium. Normal mediastinum. Normal hilar regions. Normal visualized trachea and bronchi. The lungs are well expanded. Basilar atelectasis. Normal pleura. Normal chest wall structures. Normal osseous structures. Normal visualized upper abdomen. CT/CTA Chest W/WO Contrast IMPRESSION: No demonstrated pulmonary embolism or arterial dissection. Bibasilar atelectasis. Electronically Signed: Sam Leigh DO at 21:58 EDT ,
[2024-03-04 20:58] LABS: Anion Gap 8 (5-15); BUN 17 mg/dL (7-18); BUN/Creat Ratio 14.9 RATIO (10-20); Calcium,Total 9.1 mg/dL (8.5-10.1); Chloride 104 mmol/L (98-107); Creatinine, Serum 1.14 mg/dL (0.70-1.30); EST Glomerular Filtration Rate 67 mL/min (>60); Est Glom Filt Rate - Afr Amer 81 mL/min (>60); Estimated Creatinine Clearance 58.55 ml/min; Glucose 144 mg/dL (74-106); Potassium 4.1 mmol/L (3.5-5.1); Sodium Level 135 mmol/L (136-145); Troponin-I HS (w/2H Reflex) 5 pg/mL (3.0-78.0)
[2024-03-04 21:17] VITALS: BP 119/64; PULSE 89; RESP 18
[2024-03-04 22:00] VITALS: BP 115/77; PULSE 81; RESP 17
[2024-03-04 22:10] LABS: Reflex Troponin-HS? (from REC) Y
[2024-03-04 22:46] LABS: Troponin-I HS 6 pg/mL (3.0-78.0)
[2024-03-04 23:00] VITALS: BP 122/68; PULSE 79; RESP 19; O2SAT 96
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
[2024-03-04 23:49] LABS: Alcohol, Blood (Medical)-Serum < 3.0 mg/dL
[2024-03-04 23:50] LABS: Ammonia < 10.0 umol/L (11-32)
[2024-03-05] VITALS (11 sets, daily range): BP systolic 94–133; BP diastolic 56–82; PULSE 72–88; RESP 14–18; TEMP 36.1–36.6; O2SAT 92–98; BMI 28.6
[2024-03-05 00:22] LABS: AST(SGOT) 20 U/L (15-37); Alanine Aminotransfer ALT/SGPT 26 U/L (16-61); Albumin, Serum 3.4 g/dL (3.2-5.0); Alkaline Phosphatase 86 U/L (45-117); Bilirubin, Direct 0.23 mg/dL (0.00-0.30); Globulin 3.1 g/dL (2.2-4.2); Protein, Total 6.5 g/dL (6.4-8.2)
--- NOTE | 2024-03-05 00:39 | ECHOD_ITS ---
Reason For Study: Syncope Procedure This was a 2D Doppler, Color Flow transthoracic echocardiogram. The study was technically difficult. Exam performed portable in patient room. Left Ventricle Normal LV size. The estimated ejection fraction is 60 %. No evidence for diastolic dysfunction. No regional wall motion abnormalities noted. Right Ventricle Normal RV size. Normal systolic function. Atria The left and right atria are normal. No doppler evidence for ASD. Mitral Valve There is no mitral valve stenosis. No mitral valve insufficiency. Tricuspid Valve There is no tricuspid stenosis. Trivial tricuspid valve insufficiency. Pulmonary artery systolic pressure is 30 mmHg. Aortic Valve Trisinus/trileaflet aortic valve. Mild diffuse aortic valve thickening. There is no aortic stenosis. Trivial aortic valve insufficiency. Pulmonic Valve There is no pulmonic valvular stenosis. Trivial pulmonic valve insufficiency. Great Vessels Normal aortic root. Pericardium/Pleural No pericardial effusion. MMode/2D Measurements & Calculations LVIDd: 4.6 cm IVSd: 0.91 cm LVOT diam: 2.3 cm LVIDs: 3.4 cm LVPWd: 1.1 cm LVOT area: 4.1 cm2 RVDd: 3.9 cm FS: 26.4 % asc Aorta Diam: 3.4 cm LAV(MOD-bp): 42.9 ml LVAd ap4: 26.7 cm2 LAV(MOD-bp) Indexed: 22.1 ml/m2 LVLd ap4: 8.1 cm LAV(MOD-sp2): 41.9 ml EDV(MOD-sp4): 74.4 ml LAV(MOD-sp4): 40.3 ml EDV(sp4-el): 74.6 ml LVAs ap4: 16.7 cm2 LVLs ap4: 7.0 cm ESV(MOD-sp4): 34.3 ml ESV(sp4-el): 33.7 ml EF(MOD-sp4): 53.8 % EF(sp4-el): 54.9 % LVAd ap2: 25.1 cm2 SV(MOD-sp4): 40.0 ml SV(MOD-sp2): 40.3 ml LVLd ap2: 7.7 cm EDV(MOD-sp2): 71.0 ml EDV(sp2-el): 69.1 ml LVAs ap2: 15.3 cm2 LVLs ap2: 6.8 cm ESV(MOD-sp2): 30.7 ml ESV(sp2-el): 29.3 ml EF(MOD-sp2): 56.8 % SV(sp4-el): 41.0 ml LA dimension(2D): 4.0 cm LA A4 area: 16.4 cm2 RA A4 area: 10.4 cm2 Time Measurements MV dec time: 0.19 sec Doppler Measurements & Calculations MV E max angela: 60.0 cm/sec Ao V2 max: 121.0 cm/sec MV A max angela: 77.5 cm/sec MV dec slope: 308.6 cm/sec2 Ao max P.9 mmHg MV E/A: 0.77 Ao V2 mean: 84.8 cm/sec Ao mean P.2 mmHg Ao V2 VTI: 22.6 cm AV (velocity ratio): 1.0 AMARI(I,D): 4.2 cm2 AMARI(V,D): 4.1 cm2 AI max angela: 409.3 cm/sec LV V1 max: 123.3 cm/sec SV(LVOT): 94.1 ml AI max P.1 mmHg LV V1 max P.1 mmHg AI dec slope: 255.7 cm/sec2 LV V1 mean P.9 mmHg AI P1/2t: 469.0 msec LV V1 mean: 77.9 cm/sec LV V1 VTI: 23.1 cm PA V2 max: 80.0 cm/sec TR max angela: 254.1 cm/sec PA max PG (full): 1.6 mmHg TR max P.8 mmHg ECHO/Echo Complete Interpretation Summary The estimated ejection fraction is 60 %. No evidence for diastolic dysfunction. Trivial aortic valve insufficiency. Ordering Physician: Taylor Rodriguez Referring Physician: Vignesh Jackson Performed By: Dayanna Pinto RDCS and Student
--- NOTE | 2024-03-05 00:39 | CDU_ITS ---
Reason For Study: Syncope with carotid disease Rt. Velocities/BP Lt. Velocities/BP Prox CCA 64.5/4.1 cm/sec. Prox CCA 101.1/7.7 cm/sec. Mid CCA 74.9/5 cm/sec. Mid CCA 102.3/6.5 cm/sec. Dist CCA 69.2/4.1 cm/sec. Dist CCA 103.5/7.7 cm/sec. Prox ICA 34.4/3.7 cm/sec. Prox ICA 66.3/8 cm/sec. Mid ICA 50.7/5.2 cm/sec. Mid ICA 55.3/11.3 cm/sec. Dist ICA 42.9/7.3 cm/sec. Dist ICA 49.8/11.3 cm/sec. Rt. ICA/CCA = 0.68. Lt. ICA/CCA = 0.65. Prox ECA 87.2 cm/sec. Prox ECA 121.9 cm/sec. Rt. Vert. 33.4/3.2 cm/sec. Lt. Vert. 45.4/8 cm/sec. Right Extracranial There is homogeneous, smooth atherosclerotic plaque noted in the right common carotid artery. There is heterogeneous, irregular atherosclerotic plaque noted in the right internal carotid artery. There is heterogeneous, irregular atherosclerotic plaque noted in the right external carotid artery. Antegrade flow is noted in the right vertebral artery. Left Extracranial There is homogeneous, smooth atherosclerotic plaque noted in the left common carotid artery. There is heterogeneous, irregular atherosclerotic plaque noted in the left internal carotid artery. There is homogeneous, smooth atherosclerotic plaque noted in the left external carotid artery. Antegrade flow is noted in the left vertebral artery. Procedure Carotid Duplex 24997. This is a Carotid Duplex examination using B-mode, color flow and specral Doppler. Exam performed portable in patient room. VL/Carotid Duplex Ultrasound Interpretation Summary Mild (<50%) stenosis right extracranial internal carotid. Mild (<50%) stenosis left extracranial internal carotid. Patent and antegrade vertebrals bilaterally. Ordering Physician: Taylor Rodriguez Referring Physician: La Mcdonough Performed By: Jessenia Milan RVT
[2024-03-05] MEDS: 0.9% Normal Saline (1000mL) 1,000 ML 100 ML IV (01:03)
[2024-03-05 02:50] LABS: Troponin-I HS 6 pg/mL (3.0-78.0)
--- NOTE | 2024-03-05 06:13 | CPS ---
Order for overnight pulse ox trend placed by doc around 1AM. RT was not aware until around 2AM. RT called to confirm if she wanted the trend still performed on patient this late in the night. Dr. Rodriguez aware, and still wanting trend done. Trend started on patient at 2:30AM
[2024-03-05 06:27] LABS: Absolute Lymphocyte Count 0.93 X10^3/uL (0.83-4.51); Absolute Neutrophil Count 4.6 X10^3/uL (2.0-7.7); Basophil# 0.05 X10^3/uL; Basophil% 0.8 % (0-1); Eosinophil# 0.17 X10^3/uL; Eosinophils% 2.7 % (0-5); Hematocrit 40.8 % (40-54); Hemoglobin 13.7 g/dL (13.0-16.5); Lymphocyte # 0.93 X10^3/ul (0.83-4.51); Lymphocyte % 14.7 % (19-41); Mean Corp Hgb Conc 33.6 g/dL (32-36); Mean Corpuscular Hgb 31.9 pg (27.0-32.0); Mean Corpuscular Volume 94.9 fL (80-94); Mean Platelet Vol. 9.4 fl (6.2-12.0); Monocyte# 0.59 X10^3/uL; Monocyte% 9.3 % (0-10); NRBC Flagged by Analyzer 0 % (0-5); Neutrophil # 4.58 X10^3/uL (2.7-7.7); Neutrophil % 72.2 % (47-70); Platelet Count 178 K/mm3 (150-450); RBC Distribution Width CV 13.9 % (11.6-14.6); RBC Distribution Width SD 48.9 fl (35.1-43.9); White Blood Count 6.3 K/mm3 (4.4-11.0)
[2024-03-05 06:57] LABS: Bedside Glucose 95 mg/dL (74-106)
[2024-03-05 07:00] LABS: AST(SGOT) 13 U/L (15-37); Alanine Aminotransfer ALT/SGPT 25 U/L (16-61); Albumin, Serum 3.4 g/dL (3.2-5.0); Alkaline Phosphatase 86 U/L (45-117); Anion Gap 4 (5-15); BUN 15 mg/dL (7-18); BUN/Creat Ratio 15.2 RATIO (10-20); Calcium,Total 8.8 mg/dL (8.5-10.1); Chloride 105 mmol/L (98-107); Creatinine, Serum 0.98 mg/dL (0.70-1.30); EST Glomerular Filtration Rate 79 mL/min (>60); Est Glom Filt Rate - Afr Amer 96 mL/min (>60); Estimated Creatinine Clearance 68.15 ml/min; Globulin 3.3 g/dL (2.2-4.2); Glucose 98 mg/dL (74-106); Potassium 3.9 mmol/L (3.5-5.1); Protein, Total 6.7 g/dL (6.4-8.2); Sodium Level 136 mmol/L (136-145)
--- NOTE | 2024-03-05 09:21 | CASEMGMT ---
Patient has a Healthcare Power of Ssrs Developer and Healthcare Living Will on file at [facility] Patient's son Kevin is patient's medical POA. Karen Vaughn TECHNICAL SERVICES ASSISTANT SONU
[2024-03-05] MEDS: Folic Acid 1 MG Tablet PO (10:10)
[2024-03-05] MEDS: Thiamine Hydrochloride 100 MG Tablet PO (10:10)
[2024-03-05] MEDS: Aspirin E.C. 81 MG Tablet PO (10:11)
[2024-03-05] MEDS: Enoxaparin 40 MG/0.4 ML Syringe SC (10:11)
[2024-03-05] MEDS: buPROPion (XL) 150 MG TABLET.XL PO (10:11)
[2024-03-05] MEDS: Multivitamins,Ther W-Minerals Tablet 1 TABLET PO (10:11)
--- NOTE | 2024-03-05 11:18 | CASEMGMT ---
Addendum entered by Camryn Yost 03/05/24 11:53: Pt was receiving SN/PT. Agency able to resume services upon discharge. Camryn Yost DC Planning Asst. Original Note: Discharge Planning HH resumption referral sent to [facility] via [facility]. Camryn Yost DC Planning Asst.
--- NOTE | 2024-03-05 11:33 | CASEMGMT ---
BETHANY LUIS Assessment Face to Face with patient for initial transition planning/care coordination assessment. BETHANY LUIS introduced self and role at [facility], pt voices understanding. Pt is A&Ox4 and is resting comfortably in bed and is calm. Pt XW at bedside. Care providers, pharmacy, and demographics verified. Admitting dx: Syncope LACE Strata: 2 PCP: La Mcdonough Specialists: Pt states that he sees a urologist but is unsure of the name Preferred [facility]acy: [facility] Insurance: [facility] A/B, [employer] Prescription Benefit: Yes LNOK: Letitia Leal (XW), Kevin Leal (Son) Living Arrangements: Pt is currently living at his XW's home that is a single story home with 2 steps to enter ADLs/IADLs: Ind prior to arrival Transportation: XW. Denies concerns DME: Pt reports that he wears 5L via [place] @ [facility] only supplies through [employer]. [facility] states the pt current order states 2LPM [facility]. Pt states that he has a concentrator but no portable tanks. Pt states that he does not have a pox but can afford one. Pt also states that he has a FWW, Cane, and shower chair. this BETHANY LUIS asked if the pt was interested in medical alert information and the pt declined. HHC/SNF: Pt states that he is active with HHC at this time but is unsure of what company/agency that sees him. Pt XW is also unsure but states that the pt son, Kevin, might know. Pt XW states that she will contact the pt son to find out. Per chart review, it appears that the pt may be active with [facility]. Pt?s goal: Home Plan: Anticipate home with the continuations of HHC. Follow for increased oxygen needs. 6-Click score is 18. PT,OT, and ST are pending. Pt states that he would like to DC home with the HHC and the Pt XW and states that he feels safe doing so. Pt denies further concerns at this time. Report given to PARTNER ALLIANCE MANAGER CM. Heidi Lara RN, CM
[2024-03-05 11:59] LABS: Bedside Glucose 126 mg/dL (74-106)
--- NOTE | 2024-03-05 13:18 | PN_ITS ---
Subjective Subjective Patient seen and examined. He was quite lethargic arousable and could answer questions. He was admitted on account of syncope. He states he was told he passed out though he does not remember anything about it. He denies any antecedent dizziness or lightheadedness, palpitations or headache or any other symptoms.Review of systems is otherwise negative. Objective Data Objective Data Vital Signs: Vital Signs Temp Pulse Resp BP Pulse Ox O2 Del Method FiO2 97.6 F L 77 16 94/56 L 96 Room Air 21 03/05/24 08:00 03/05/24 08:00 03/05/24 08:00 03/05/24 08:00 03/05/24 08:51 03/05/24 10:00 03/05/24 02:25 Oxygen Delivery Method Room Air Weight: 182 lb 15.739 oz Body Mass Index (BMI) 28.6 Intake & Output: Intake and Output for Last 24 Hours 03/03/24 03/04/24 03/05/24 23:59 23:59 23:59 Intake Total 500 / 500 1250 / 1250 Output Total 400 / 400 Balance 500 / 500 850 / 850 Lab / Micro Data 03/05/24 05:34 03/05/24 05:34 Labs: Laboratory Results - last 24 hr 03/04/24 19:56: WBC 8.5, RBC 4.52 L, Hgb 14.4, Hct 42.0, MCV 92.9, MCH 31.9, MCHC 34.3, RDW Std Deviation 46.8 H, RDW Coeff of Janny 13.7, Plt Count 184, MPV 9.3, Immature Gran % (Auto) 0.400, Neut % (Auto) 72.0 H, Lymph % (Auto) 18.1 L, [place] % (Auto) 7.3, Eos % (Auto) 1.6, Baso % (Auto) 0.6, Absolute Neuts (auto) 6.1, Absolute Lymphs (auto) 1.54, Nucleated RBC % 0, D-Dimer Quant (PE/DVT) 1.48 H*, Sodium 135 L, Potassium 4.1, Chloride 104, Carbon Dioxide 23.0, Anion Gap 8, BUN 17, Creatinine 1.14, Estim Creat Clear Calc 58.55, Est GFR (MDRD) Af Amer 81, Est GFR (MDRD) Non-Af 67, BUN/Creatinine Ratio 14.9, Glucose 144 H, Calcium 9.1, Troponin I High Sens 5 03/04/24 22:20: Troponin I High Sens 6 03/04/24 23:23: Magnesium 2.0, Total Bilirubin 0.70, Direct Bilirubin 0.23, AST 20, ALT 26, Alkaline Phosphatase 86, Ammonia < 10.0 L, Total Protein 6.5, Albumin 3.4, Globulin 3.1, Ethyl Alcohol < 3.0 03/05/24 02:15: Troponin I High Sens 6 03/05/24 05:34: WBC 6.3, RBC 4.30 L, Hgb 13.7, Hct 40.8, MCV 94.9 H, MCH 31.9, MCHC 33.6, RDW Std Deviation 48.9 H, RDW Coeff of Janny 13.9, Plt Count 178, MPV 9.4, Immature Gran % (Auto) 0.300, Neut % (Auto) 72.2 H, Lymph % (Auto) 14.7 L, [place] % (Auto) 9.3, Eos % (Auto) 2.7, Baso % (Auto) 0.8, Absolute Neuts (auto) 4.6, Absolute Lymphs (auto) 0.93, Nucleated RBC % 0, Sodium 136, Potassium 3.9, Chloride 105, Carbon Dioxide 27.0, Anion Gap 4 L, BUN 15, Creatinine 0.98, Estim Creat Clear Calc 68.15, Est GFR (MDRD) Af Amer 96, Est GFR (MDRD) Non-Af 79, BUN/Creatinine Ratio 15.2, Glucose 98, Calcium 8.8, Total Bilirubin 0.60, AST 13 L, ALT 25, Alkaline Phosphatase 86, Total Protein 6.7, Albumin 3.4, Globulin 3.3, Albumin/Globulin Ratio 1.0 03/05/24 06:10: POC Glucose 95 03/05/24 11:13: POC Glucose 126 H ABG Data ABG results: ABG 03/04/24 20:15 Specimen Type ART Sample Site R Radial pH 7.43 Bicarbonate Actual 23.4 Total CO2 25 Base Excess -1 O2 Saturation 95 ABG pCO2 35.0 ABG pO2 71 L Beny Test Positive O2 Delivery Device Room Air Vent Mode Not entered Radiography Diagnostic Testing: Radiology Impression Brain CT 03/04/24 20:01 IMPRESSION: Age-related and chronic changes of the brain. Electronically Signed: Sam Leigh DO at 21:44 EDT , Chest CTA 03/04/24 20:40 IMPRESSION: No demonstrated pulmonary embolism or arterial dissection. Bibasilar atelectasis. Electronically Signed: Sam Leigh DO at 21:58 EDT , Carotid Duplex 03/05/24 00:39 Interpretation Summary Mild (<50%) stenosis right extracranial internal carotid. Mild (<50%) stenosis left extracranial internal carotid. Patent and antegrade vertebrals bilaterally. Ordering Physician: Taylor Rodriguez Referring Physician: La Mcdonough Performed By: Jessenia Milan RVT Echocardiogram 03/05/24 00:39 Interpretation Summary The estimated ejection fraction is 60 %. No evidence for diastolic dysfunction. Trivial aortic valve insufficiency. Ordering Physician: Taylor Rodriguez Referring Physician: Vignesh Jackson Performed By: Dayanna Pinto RDCS and Student Rhythm Strip Rhythm Strip: Sinus Rhythm Rate: 83 Ectopy: None Physical Exam Const alert, oriented x3, no apparent distress and well nourished Constitutional Narrative: frail, weak General Appearance: cooperative and well developed HEENT normocephalic, head/scalp atraumatic, moist oral mucous membranes and oropharynx normal Eyes PERRL and EOMs intact bilaterally Neck no lymphadenopathy, supple and no JVD Lymph Lymphatic: no lymphadenopathy noted and no lymphedema noted Resp normal respiratory effort, normal air movement and clear to auscultation bilaterally Cardio regular rate, regular rhythm, S1 normal heart sound, S2 normal heart sound and no murmurs GI normal to inspection, nondistended, normoactive bowel sounds, soft to palpation, non-tender and non-distended Extremity normal capillary refill, no clubbing, cyanosis or edema and no calf tenderness General Extremity: no tenderness to palpation of joints or extremities Skin General Skin Exam: no breakdown Neuro CN's II-XII intact bilaterally, no focal motor deficits, no sensory deficits noted and deep tendon reflexes 2+ bilaterally Motor Exam: strength 5/5 throughout and general weakness Psych thought process normal and cooperative Psych Narrative: weak and frail. Appearance: appropriate Assessment & Plan Assessment/Plan (1) Syncope: (2) Hypoxia, sleep related: PLAN: Plan #Syncope * Etiology is unclear. He was being brought to the hospital for planned sleep study but slumped over in his seat and was unresponsive so he was brought to the ED. * He has no recollection of this though his said he had been very sleepy and fatigued the whole of the day prior to coming to the ED. On the day of presentation. * CT of the brain showed no acute intracranial pathology. CT of the chest showed no evidence of PE or dissection. * 2D echo done today showed EF of 60% with no evidence of diastolic dysfunction and trivial aortic valve insufficiency * Carotid duplex ultrasound showed mild less than 50% stenosis in the right and left extracranial internal carotids and patent and antegrade vertebrals bilaterally * Carotid ultrasound also done. Will do EEG. He did have an overnight pulse oximetry done. * PT/OT On board. fall precautions * neurology also consulted due to unclear etiology of syncope. * I suspect it may be related to apneic episodes also. Will get pulmonology to see patient adn review overnight pulse ox. * Fall precautions * PT/OT On board * check orthostatics * #Hypertension: on amlodipine and losartan. IV hydralazine prn #Hyperlipidemia: on statin #Depression; on bupropion. #History of carotid disease: On aspirin and statin. Follows up with vascular surgery. Carotid ultrasound done during this admission #Probable BARAK: As stated was due to coming to the hospital for sleep study and as he was coming he passed out. Did have overnight pulse ox done. #Alcohol use disorder: * States he drinks about 1-2 beers daily. * Does not have any symptoms of withdrawal. * Urine tox was negative. * Started on CIWA protocol as a precaution * DVT prophylaxis: Lovenox CODE STATUS: Full code Charges/Coding Visit Charges Inpatient E&M: 28842 Subs Hosp L2
[2024-03-05 13:55] LABS: Hemoglobin A1c 5.8 % (3.8-5.6)
--- NOTE | 2024-03-05 15:17 | CASEMGMT ---
Met with patient to complete JARAMILLO form. JARAMILLO form explained to patient who voiced understanding and signed form. Original form placed in pt?s chart and copy provided to patient. Camryn Yost, Discharge Planning Asst
[2024-03-05 16:44] LABS: Bedside Glucose 133 mg/dL (74-106)
[2024-03-05 19:02] LABS: Amphetamine Urine VISTA NEGATIVE (<1000 ng/mL); Barbiturate Urine VISTA NEGATIVE (< 200 ng/mL); Benzodiazepine Urine VISTA NEGATIVE (< 200 ng/mL); Cocaine Urine VISTA NEGATIVE (< 300 ng/mL); Ecstacy Urine VISTA POSITIVE (< 500 ng/mL); Methadone Urine VISTA NEGATIVE (< 300 ng/mL); PCP Urine VISTA NEGATIVE (< 25 ng/mL); THC Urine VISTA NEGATIVE (< 50 ng/mL); Vista UDS pH Range 6
[2024-03-05] MEDS: Losartan Potassium 25 MG Tablet PO (20:56)
[2024-03-05] MEDS: Atorvastatin Calcium 40 MG Tablet PO (20:56)
[2024-03-05 21:43] LABS: Bedside Glucose 123 mg/dL (74-106)
[2024-03-06 01:00] VITALS: BP 126/68; PULSE 70; RESP 18; TEMP 36.3; O2SAT 95
[2024-03-06 02:30] VITALS: BP 126/68; PULSE 70; RESP 18; TEMP 36.3; O2SAT 95
[2024-03-06 05:31] VITALS: BMI 29.2
[2024-03-06 06:04] LABS: Absolute Lymphocyte Count 1.16 X10^3/uL (0.83-4.51); Absolute Neutrophil Count 3.2 X10^3/uL (2.0-7.7); Basophil# 0.05 X10^3/uL; Basophil% 0.9 % (0-1); Eosinophil# 0.38 X10^3/uL; Lymphocyte # 1.16 X10^3/ul (0.83-4.51); Lymphocyte % 21.3 % (19-41); Mean Corp Hgb Conc 33.3 g/dL (32-36); Mean Corpuscular Hgb 31.7 pg (27.0-32.0); Mean Corpuscular Volume 95.1 fL (80-94); Mean Platelet Vol. 9.1 fl (6.2-12.0); Monocyte# 0.67 X10^3/uL; Monocyte% 12.3 % (0-10); NRBC Flagged by Analyzer 0 % (0-5); Neutrophil # 3.18 X10^3/uL (2.7-7.7); Neutrophil % 58.3 % (47-70); Platelet Count 158 K/mm3 (150-450); RBC Distribution Width CV 13.9 % (11.6-14.6); RBC Distribution Width SD 48.8 fl (35.1-43.9); White Blood Count 5.5 K/mm3 (4.4-11.0)
[2024-03-06 06:31] LABS: Anion Gap 5 (5-15); BUN 14 mg/dL (7-18); BUN/Creat Ratio 15.6 RATIO (10-20); Chloride 105 mmol/L (98-107); EST Glomerular Filtration Rate 88 mL/min (>60); Est Glom Filt Rate - Afr Amer 106 mL/min (>60); Glucose 105 mg/dL (74-106); Potassium 3.9 mmol/L (3.5-5.1); Sodium Level 135 mmol/L (136-145)
[2024-03-06 08:19] VITALS: BP 143/79; PULSE 71; RESP 18; TEMP 36.4; O2SAT 94
[2024-03-06] MEDS: Enoxaparin 40 MG/0.4 ML Syringe SC (08:53)
[2024-03-06] MEDS: Thiamine Hydrochloride 100 MG Tablet PO (08:54)
[2024-03-06] MEDS: Losartan Potassium 25 MG Tablet PO (08:54)
[2024-03-06] MEDS: Multivitamins,Ther W-Minerals Tablet 1 TABLET PO (08:54)
[2024-03-06] MEDS: amLODIPine 5 MG Tablet PO (08:54)
[2024-03-06] MEDS: Aspirin E.C. 81 MG Tablet PO (08:54)
[2024-03-06] MEDS: buPROPion (XL) 150 MG TABLET.XL PO (08:55)
[2024-03-06] MEDS: Folic Acid 1 MG Tablet PO (08:55)
--- NOTE | 2024-03-06 11:25 | CASEMGMT ---
Addendum entered by Christoph Kaur 03/06/24 15:35: Discharge order is in. [facility] made aware via VM. Addendum entered by Christoph Kaur 03/06/24 13:10: Per [facility], they do not have ST services at this time. Pt and ex- made aware ST is recommending ST @ dc and [facility] does not have this service. They are agreeable to switching to different [facility] agency, deny having preference, aware [facility] does cover pt's area, and they state would like [facility], declining list of other options. Referral has been made w/Nini @ [facility], they are able to accept, and SOC slated for Saturday, as long as [facility] discharges pt today. atul Cowan medical office assistant instructor aware and states will notify [facility] and to have them discharge pt from their services today, so [facility] can accept. Pt and ex- made aware [facility] able to accept w/SOC Saturday. DC plan updated. Original Note: BETHANY LUIS NOTE: BETHANY LUIS spoke w/OT this AM who states pt is safe to discharge home. Additional PT recommended, but states OT is not needed @ pa. BETHANY LUIS to room. Pt sitting up in chair. Introduced self and role. Pt wishes to discharge home w/AL of [facility]. Pt denies having other discharge needs/concerns at this time. Noted ST states recommends ST @ dc. ST added to [facility] AL order. atul Cowan medical office assistant instructor, aware and will notify [facility]. Also made aware pt to discharge home today and she will also notify [facility] of same. Durga AGUILA RN, CM
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
[2024-03-06 14:19] VITALS: BP 115/69; PULSE 81; RESP 18; TEMP 36.4; O2SAT 95
--- NOTE | 2024-03-06 15:16 | DS.PCM_ITS ---
Providers Date of Admission: 03/04/24 Date of Discharge: 03/06/24 Primary Care Physician: DARIUSZ Jose Consultations 03/05/24 11:47 Teleneurology [Consult: Tele-Neurology] Routine Consulting Provider: [facility] Reason for Consult: syncope EMERGENT Consult: No MD Notified: Yes Date Notified: 03/05/24 Time Notified: 11:56 Method of Notification: Answering Service Nursing Unit Staff Notify [facility] of Tele-Neurology Consult: Yes 03/05/24 14:07 Consult: Chucking Lathe Operator / Pulmonary Medicine Routine Consulting Provider: Intensivists/Pulmonary Med Reason for Consult: probable sleep apnea EMERGENT Consult: No Notified: Yes Date Notified: 03/05/24 Time Notified: 14:08 Method of Notification: Verbal Reason For Visit: SYNCOPE Diagnosis Discharge Diagnosis (1) Syncope: Status: Acute Code(s): R55 - Syncope and collapse (2) Hypoxia, sleep related: Status: Acute Code(s): G47.34 - Idiopathic sleep related nonobstructive alveolar hypoventilation Plan #Syncope * Etiology is unclear. He was being brought to the hospital for planned sleep study but slumped over in his seat and was unresponsive so he was brought to the ED. * He has no recollection of this though his said he had been very sleepy and fatigued the whole of the day prior to coming to the ED. On the day of presentation. * CT of the brain showed no acute intracranial pathology. CT of the chest showed no evidence of PE or dissection. * 2D echo done today showed EF of 60% with no evidence of diastolic dysfunction and trivial aortic valve insufficiency * Carotid duplex ultrasound showed mild less than 50% stenosis in the right and left extracranial internal carotids and patent and antegrade vertebrals bilaterally * Carotid ultrasound also done. Will do EEG. He did have an overnight pulse oximetry done. * PT/OT On board. fall precautions * neurology also consulted due to unclear etiology of syncope. * I suspect it may be related to apneic episodes also. Will get pulmonology to see patient adn review overnight pulse ox. * Fall precautions * PT/OT On board * check orthostatics * #Hypertension: on amlodipine and losartan. IV hydralazine prn #Hyperlipidemia: on statin #Depression; on bupropion. #History of carotid disease: On aspirin and statin. Follows up with vascular surgery. Carotid ultrasound done during this admission #Probable BARAK: As stated was due to coming to the hospital for sleep study and as he was coming he passed out. Did have overnight pulse ox done. #Alcohol use disorder: * States he drinks about 1-2 beers daily. * Does not have any symptoms of withdrawal. * Urine tox was negative. * Started on CIWA protocol as a precaution * DVT prophylaxis: Lovenox CODE STATUS: Full code Medications at Discharge Home Medications aspirin 81 mg tablet,delayed release (Adult Low Dose Aspirin) 81 mg PO DAILY [facility] 01/28/24 amlodipine 5 mg tablet 5 mg PO DAILY BP #30 tabs 02/10/24 atorvastatin 80 mg tablet 40 mg (1/2 x 80 mg) PO QHS Cholestrol #30 tabs 02/10/24 bupropion HCl 150 mg 24 hr tablet, extended release 150 mg PO DAILY #30 tabs 02/10/24 losartan 25 mg tablet (Cozaar) 25 mg PO BID BP #60 tabs 02/10/24 nicotine 21 mg/24 hr daily transdermal patch 21 mg transdermal DAILY #14 ea 02/10/24 Hospital Course Operations None Procedures 2-D Echocardiogram Summary of Care Provided Minutes Spent on Discharge: 48 Hospital Course: Patient is a 73-year-old male with an extensive past medical history as outlined including history of stroke with left-sided hemiplegia was admitted to the ED on 03/04/2024 with a complaint of syncope. Patient was apparently being brought into the hospital by his for planned sleep study on the night of admission. Just prior to arrival he was noted to be slumped over in his seat and so his brought him to the emergency for evaluation. When he was brought into the emergency he woke up spontaneously and had no memory of any prodromal symptoms. noted that he had been very sleepy and fatigued the day of presentation. He had no other complaints. Review of systems otherwise negative. Troponins x 2 were negative and EKG showed no acute ST changes. CT of the brain showed no acute intracranial pathology and CTA of the chest showed no evidence of PE or dissection. He was admitted and managed for debility and syncope. He was hydrated with fluids. He had 2D echo done which showed EF of 60% with no evidence of diastolic dysfunction and trivial aortic valve insufficiency. He had carotid duplex ultrasound done which showed minimal less than 50% stenosis of the extracranial carotid arteries bilaterally. Neurology was consulted. He did have an EEG which showed cerebral dysfunction over the right hemisphere with no seizures or epileptic activity seen. Neurology reviewed patient and thought it was less likely a seizure and thought he may have just been deeply asleep at the time of the episode. They recommended syncope workup. Of note, patient was noted to have one episode of a brief pause per telemetry and also had some brief episodes of bradycardia with heart rate going down to the 40s and 50s. He was not on any rate limiting medication. For the most part during the admission, his heart rate did remain above 60. Patient was therefore discharged home on 03/06/2024 with a 30-day event monitor, results of which are to be sent to [facility] for interpretation. He is to follow-up with his primary care doctor within 1 to 2 weeks. He did have an overnight pulse oximetry during admission, and I spoke to pulmonology about reviewing the pulse oximetry. Per associate professor of pathology Dr. Romo all of the patient's rates were over 90% saturation. Also the oximetry was started in the early hours of the morning at around 2 AM and so was not to truly overnight pulse oximetry. Pulmonology therefore advised the patient follow-up with his PCP for pulse oximetry to be ordered again. Patient seen and examined prior to discharge. He had no active complaints. He was alert and eating breakfast and requested to be discharged home. Review of systems otherwise negative. Labs and vitals reviewed. Home medication reviewed and reconciled. Physical Exam Const alert, oriented x3 and no apparent distress Constitutional Narrative: frail, weak General Appearance: cooperative, comfortable, well kempt and well developed HEENT normocephalic, head/scalp atraumatic, hearing grossly normal bilaterally, moist oral mucous membranes and oropharynx normal Mouth: oral and palatal mucosa normal Eyes PERRL, EOMs intact bilaterally and conjunctivae normal Neck no lymphadenopathy, supple and no JVD Lymph Lymphatic: no lymphadenopathy noted and no lymphedema noted Resp normal respiratory effort, normal air movement and clear to auscultation bilaterally Cardio regular rate, regular rhythm, S1 normal heart sound, S2 normal heart sound and no murmurs GI normal to inspection, nondistended, normoactive bowel sounds, soft to palpation, non-tender and non-distended Extremity normal capillary refill, no clubbing, cyanosis or edema and no calf tenderness General Extremity: no tenderness to palpation of joints or extremities Skin no rashes or lesions noted General Skin Exam: no breakdown Neuro oriented x3, CN's II-XII intact bilaterally, moves all extremities, no focal motor deficits, no sensory deficits noted and deep tendon reflexes 2+ bilaterally Sensorium / Orientation: awake and alert Motor Exam: strength 5/5 throughout and general weakness Psych thought process normal and cooperative Psych Narrative: weak and frail. Appearance: appropriate Weight / BMI Weight Weight: 186 lb 11.704 oz Body Mass Index (BMI) 29.2 ABG / Lab / Microbiology Data 03/06/24 05:53 03/06/24 05:53 Laboratory: Laboratory Results - last 24 hr 03/05/24 16:23: POC Glucose 133 H 03/05/24 18:00: Urine Opiates Screen NEGATIVE, Urine Methadone Screen NEGATIVE, Ur Barbiturates Screen NEGATIVE, Ur Phencyclidine Scrn NEGATIVE, Ur Amphetamines Screen NEGATIVE, MDMA (Ecstasy) Screen POSITIVE H, U Benzodiazepines Scrn NEGATIVE, Urine Cocaine Screen NEGATIVE, U Cannabinoids Screen NEGATIVE, Ur Drug Screen Comment 03/05/24 21:02: POC Glucose 123 H 03/06/24 05:53: WBC 5.5, RBC 4.10 L, Hgb 13.0, Hct 39.0 L, MCV 95.1 H, MCH 31.7, MCHC 33.3, RDW Std Deviation 48.8 H, RDW Coeff of Janny 13.9, Plt Count 158, MPV 9.1, Immature Gran % (Auto) 0.200, Neut % (Auto) 58.3, Lymph % (Auto) 21.3, [place] % (Auto) 12.3 H, Eos % (Auto) 7.0 H, Baso % (Auto) 0.9, Absolute Neuts (auto) 3.2, Absolute Lymphs (auto) 1.16, Nucleated RBC % 0, Sodium 135 L, Potassium 3.9, Chloride 105, Carbon Dioxide 25.0, Anion Gap 5, BUN 14, Creatinine 0.90, Estim Creat Clear Calc 74.90, Est GFR (MDRD) Af Amer 106, Est GFR (MDRD) Non-Af 88, BUN/Creatinine Ratio 15.6, Glucose 105, Calcium 9.0 D/C Instructions Discharge Diet: Low fat / Low cholesterol Discharge Activity: Return to Normal Activity Weight Bearing Status: Weight bearing as tolerated Call your doctor if you observe: Fever of 101 or Higher, Shortness of breath, Dizziness, Swelling in the ankles, Chest pain and Increased palpitations (irregular heartbeat) Meaningful Use Info Meaningful Use Meaningful Use Diagnoses (Choose all that apply): None applicable Ischemic Stroke Statin Dosing Therapy Reference: STATIN DOSE THERAPY REFERENCE: * Patients > 75 years receive moderate or high dose statin therapy. * Patients 75 years or YOUNGER should receive HIGH intensity statin dose unless contraindicated. You will be required to document reason for non-treatment if statin daily dose does not meet guidelines. HIGH DOSE STATIN THERAPY DAILY Atorvastatin > than or = to 40 mg Rosuvastatin > than or = to 20 mg Amlodipine + Atorvastatin > than or = to 2.5/40 mg Ezetimibe + Simvastatin 10/80 mg Simvastatin 80mg Discharge Plan Admission Admit Date/Time: 03/04/24 23:10 Primary Reason for Your Visit: syncope Attending Provider: Sapphire Wharton Primary Care Provider: La Mcdonough Consulting Providers: Taylor Rodriguez; Lexi Allred; Caro Schwab; Sruthi Villegas; Cesar Soto; Chaka Sweeney; Deepak Brady; TIFFANY ESPINOZA; Debby Aviles; Kay Mae; Esa Allison; Rossy Vides; Torey Vines; Pat Arellano; Fanny Smith; Sander Chung; Kristen Luna; Enoch Zacarias; Geraldo Hui; Hieu Nagel; Zeina Oneal; Rony Echols Jesús; Danie Almazan; Dhruv Gutierrez; Reese Garnett; Chari Hagen; Rupesh Valderrama; Mina Casarez; Thaddeus Alvarado; Rob Romo; Zion Luna; Raleigh Bragg; Jose J Krueger; Jackie Kerns; Jose Burt; Richardson Samuel; Nataliia Gimenez; Irma Leung; Micha Walls; Rj Joseph; Anand Brown; Henry Polanco; Wesley Steel; Edmar Pelaez Instructions Patient Instructions: Diagnosing Syncope Discharge Orders/Prescriptions Prescriptions: Continued aspirin [Adult Low Dose Aspirin] 81 mg tablet,delayed release (DR/EC) 81 mg PO DAILY nicotine 21 mg/24 hr Patch 24 Hour 21 mg transdermal DAILY Qty: 14 0RF bupropion HCl 150 mg Tablet Extended Release 24 Hr 150 mg PO DAILY Qty: 30 0RF atorvastatin 80 mg tablet 40 mg PO QHS Qty: 30 0RF amlodipine 5 mg tablet 5 mg PO DAILY Qty: 30 0RF losartan [Cozaar] 25 mg tablet 25 mg PO BID Qty: 60 0RF Other Ambulatory Orders: 30 Day Event Recorder Preventi (Urgent) Timeframe: 1 Day Facility: [facility] - Location: Cardiovascular Services Ordered By: Dr. Sapphire Wharton Referrals / Follow Up: La Mcdonough, OCCUPATIONAL HEALTH PHYSICIAN-C [Primary Care Provider] - Within 1 Week Disposition Disposition (needs filled in before D/C Order can be placed): Home Health Service Charges/Coding Visit Charges Inpatient E&M: 73806 Disch Hosp >30min
--- NOTE | 2024-03-06 15:16 | DCINST_ITS ---
Discharge Instructions Diet Discharge Diet: Low fat / Low cholesterol Activity Discharge Activity: Return to Normal Activity Weight Bearing Status: Weight bearing as tolerated Dressing / Incision Call your doctor if you observe: Fever of 101 or Higher, Shortness of breath, Dizziness, Swelling in the ankles, Chest pain and Increased palpitations (irregular heartbeat) Follow Up Care Test Results: Test results from this visit will be discussed in further detail at your follow- up appointment, if applicable. Discharge Plan Admission Admit Date/Time: 03/04/24 23:10 Primary Reason for Your Visit: syncope Attending Provider: Sapphire Wharton Primary Care Provider: La Mcdonough Consulting Providers: Taylor Rodriguez; Lexi Allred; Caro Schwab; Sruthi Villegas; Cesar Soto; Chaka Sweeney; Deepak Brady; TIFFANY ESPINOZA; Debby Aviles; Kay Mae; Esa Allison; Rossy Vides; Torey Vines; Pat Arellano; Fanny Smith; Sander Chung; Kristen Luna; Enoch Zacarias; Geraldo Hui; Hieu Nagel; Zeina Oneal; Rony Echols; Danie Almazan; Dhruv Bautista; Reese Garnett; Chari Hagen; Rupesh Valderrama; Mina Casarez; Thaddeus Alvarado; Rob Romo; Zion Luna; Raleigh Bragg; Jose J Krueger; Jackie Kerns; Jose Burt; Richardson Samuel; Nataliia Gimenez; Irma Leung; Micah Walls; Rj Joseph; Anand Brown; Henry Polanco; Wesley Steel; Edmar Pelaez Instructions Patient Instructions: Diagnosing Syncope Discharge Orders/Prescriptions Prescriptions: Continued aspirin [Adult Low Dose Aspirin] 81 mg tablet,delayed release (DR/EC) 81 mg PO DAILY nicotine 21 mg/24 hr Patch 24 Hour 21 mg transdermal DAILY Qty: 14 0RF bupropion HCl 150 mg Tablet Extended Release 24 Hr 150 mg PO DAILY Qty: 30 0RF atorvastatin 80 mg tablet 40 mg PO QHS Qty: 30 0RF amlodipine 5 mg tablet 5 mg PO DAILY Qty: 30 0RF losartan [Cozaar] 25 mg tablet 25 mg PO BID Qty: 60 0RF Other Ambulatory Orders: 30 Day Event Recorder Preventi (Urgent) Timeframe: 1 Day Facility: [facility] - Location: Cardiovascular Services Ordered By: Dr. Sapphire Wharton Referrals / Follow Up: La Mcdonough, BASS GUITAR TEACHER-C [Primary Care Provider] - Within 1 Week Disposition Disposition (needs filled in before D/C Order can be placed): Home Health Service
[2024-03-06 15:52] VITALS: BP 100/68; BP 125/78; BP 133/71; PULSE 89; PULSE 90; PULSE 92
--- NOTE | 2024-03-06 16:00 | PHA.DC_ITS ---
Pharmacy [place] Med Reconciliation Pharmacy Service has performed discharge medication reconciliation for this patient. The patient's discharge medication list was reviewed for discrepancies and discrepancies were resolved. Medications at Discharge Home Medications aspirin 81 mg tablet,delayed release (Adult Low Dose Aspirin) 81 mg PO DAILY Heart health 01/28/24 amlodipine 5 mg tablet 5 mg PO DAILY BP #30 tabs 02/10/24 atorvastatin 80 mg tablet 40 mg (1/2 x 80 mg) PO QHS Cholestrol #30 tabs 0 02/10/24 bupropion HCl 150 mg 24 hr tablet, extended release 150 mg PO DAILY #30 tabs 02/10/24 losartan 25 mg tablet (Cozaar) 25 mg PO BID BP #60 tabs 02/10/24 nicotine 21 mg/24 hr daily transdermal patch 21 mg transdermal DAILY #14 ea 02/10/24
[2024-03-06] MEDS: 0.9% Normal Saline (500mL Bag) 500 ML 999 ML IV (16:10)
[2024-03-06 16:58] VITALS: BP 122/68; BP 132/74; BP 141/78; PULSE 88; PULSE 90; PULSE 91
== END 2024-03-06 15:16 | disposition home health service (06) ==
LOC: ED 23:13 → PCU 23:40
PROVIDERS: Admitting Provider Family Medicine; Emergency Provider Emergency Medicine; PCP Nurse Practitioner Family; Referring Provider Emergency Medicine; Visit Provider Student in an Organized Health Care Education/Training Program
DX: R55 Syncope and collapse (principal); E78.5 Hyperlipidemia, unspecified; G47.34 Idiopathic sleep related nonobstructive alveolar hypoventilation; F17.210 Nicotine dependence, cigarettes, uncomplicated; I10 Essential (primary) hypertension; I69.392 Facial weakness following cerebral infarction; I73.9 Peripheral vascular disease, unspecified; Z79.82 Long term (current) use of aspirin; Z79.899 Other long term (current) drug therapy; R73.03 Prediabetes; F32.A Depression, unspecified; I65.23 Occlusion and stenosis of bilateral carotid arteries
CPT/HCPCS: 36415; 36600; 70450; 71275; 80048; 80053; 80076; 80307; 82077; 82140; 82803; 82962; 83036; 83735; 84484; 85025; 85379; 92526; 92610; 93005; 93306; 93880; 94668; 94762; 95819; 96360; 96361; 96372; 97166; 97535; 99221; 99284; J7030; J7040; Q9967; A4216; G0378

== ENCOUNTER → 2024-03-20 | Outpatient (CLI) | payer SELFPAY | END | disposition home or self-care (01) | PROVIDERS: PCP Nurse Practitioner Family; Referring Provider Internal Medicine; Visit Provider Internal Medicine | DX: G47.10 Hypersomnia, unspecified (principal) | CPT/HCPCS: 95810 ==

== ENCOUNTER → 2024-03-23 | Outpatient (CLI) | payer OTHER, SELFPAY ==
--- NOTE | 2024-03-23 10:07 | STRESSREP_ITS ---
Stress Test Report Date: 03/23/2024 Procedure: Exercise tolerance test/imaging study Indications: Vascular disease Consent: Per the patient Procedure: The patient exercised on a Sammy protocol for 3 minutes and 2 seconds achieving a peak heart rate of 120 bpm (82% predicted maximal heart rate) with a peak blood pressure 148/70 mmHg and a peak MET capacity of 4 point METs. The baseline ECG demonstrated sinus rhythm. The peak exercise ECG demonstrated no ischemic changes. There are rare PVC noted. The functional capacity was considered suboptimal. There was no complaint of chest pain however the patient did complain of shortness of breath. The examination was discontinued secondary to shortness of breath and leg discomfort. The patient was injected with 9.9 mCi of technetium 99m Cardiolite and subsequently rest SPECT Cardiolite nuclear imaging was obtained in the horizontal long, vertical long, and short axis views. Post-exercise, the patient was injected with 33.6 mCi of technetium 99m Cardiolite and subsequently stress SPECT Cardiolite nuclear imaging was obtained in the horizontal long, vertical long, and short axis views. A gated Cardiolite study at peak stress was obtained. Rest and stress SPECT Cardiolite nuclear imaging status post realignment, normalization, and attenuation correction, demonstrates the appearance of relative uniform tracer uptake and myocardial perfusion appearing within normal limits. There is end systolic thickening and brightening. The gated Cardiolite study demonstrates myocardial thickening and inward wall motion. The reported LVEF is 58%. Impression: 1. Technically adequate exercise stress test. 82% maximal predicted heart rate achieved. 2. Peak exercise ECG with no diagnostic ischemic changes 3. There were no cardiac dysrhythmias pretest, during exercise, or recovery 4. Rest and stress SPECT Cardiolite nuclear imaging demonstrate relative uniform tracer uptake and myocardial perfusion appearing within normal limits. 5. The gated Cardiolite study reports an LVEF of 58%. This note was generated with [employer]orum[employer] software. It may contain incorrect words, spelling, and punctuation that were not noted in checking the note before signing.
== END | disposition home or self-care (01) ==
LOC: CVS 06:46
PROVIDERS: PCP Nurse Practitioner Family; Referring Provider Nurse Practitioner Family; Visit Provider Nurse Practitioner Family
DX: I70.0 Atherosclerosis of aorta (principal); R94.31 Abnormal electrocardiogram [ECG] [EKG]
CPT/HCPCS: 78452; 93017; A9500; A4216

== ENCOUNTER → 2024-06-23 | Outpatient (CLI) | payer OTHER, SELFPAY ==
--- NOTE | 2024-06-23 11:00 | RAD_ITS ---
HISTORY: For PPM implant. TECHNIQUE: XR Chest 2 Views. COMPARISON: 11/12/2006. FINDINGS: CARDIOMEDIASTINAL BORDERS: Cardiac silhouette within normal limits in size. Mediastinal contour unremarkable with mild calcification of the aortic knob. LUNGS: Radiographically clear. Overlying device on the chest wall. PLEURA: No pleural effusion or pneumothorax seen. OSSEOUS STRUCTURES: Degenerative change. RAD/Chest PA and Lateral IMPRESSION: No acute cardiopulmonary process identified. Electronically Signed: Alesia Narayan MD at 12:05 EST ,
[2024-06-23 11:22] LABS: Bacteria 0 SEEN /hpf (None Seen); Mucous, Urine 0 SEEN /hpf (<or=2+); Red Blood Cells-Urine 0 SEEN /hpf (0-5)
[2024-06-23 11:51] LABS: Hematocrit 41.1 % (40-54); Hemoglobin 13.8 g/dL (13.0-16.5); Mean Corp Hgb Conc 33.6 g/dL (32-36); Mean Corpuscular Hgb 32.9 pg (27.0-32.0); Mean Corpuscular Volume 98.1 fL (80-94); Mean Platelet Vol. 9.1 fl (6.2-12.0); Platelet Count 219 K/mm3 (150-450); RBC Distribution Width CV 14.2 % (11.6-14.6); RBC Distribution Width SD 50.9 fl (35.1-43.9); Red Blood Count 4.19 M/mm3 (4.6-6.2); White Blood Count 6.2 K/mm3 (4.4-11.0)
[2024-06-23 12:06] LABS: Prothrombin Time (Protime)PT. 13.7 SECONDS (11.7-14.9)
[2024-06-23 12:28] LABS: Color, Urine Yellow (Yellow); Glucose, Dipstick Normal (Normal); Ketone-Dipstick Negative (Negative); Leukocyte Esterase-Dipstick 25 /ul (Negative); Nitrite-Dipstick Negative (Negative); Occult Blood-Urine Negative /ul (Negative); Protein-Dipstick Negative (Negative); Specific Gravity, Urine 1.015 (1.002-1.030); Urine Bilirubin Dipstick Negative (Negative); Urine Clarity Clear (Clear); Urine Urobilinogen 1 mg/dl (Normal); Urine pH 6.5 (5.0 - 8.0)
[2024-06-23 12:58] LABS: Squamous Epithelial Cells - UA 0-5 SEEN /hpf (0-5); White Blood Cells 0-5 SEEN /hpf (0-5)
[2024-06-23 13:11] LABS: Anion Gap 5 (5-15); BUN 12 mg/dL (7-18); BUN/Creat Ratio 11.7 RATIO (10-20); Calcium,Total 9.3 mg/dL (8.5-10.1); Chloride 107 mmol/L (98-107); Creatinine, Serum 1.03 mg/dL (0.70-1.30); EST Glomerular Filtration Rate 75 mL/min (>60); Est Glom Filt Rate - Afr Amer 91 mL/min (>60); Glucose 105 mg/dL (74-106); Potassium 4.2 mmol/L (3.5-5.1); Sodium Level 140 mmol/L (136-145)
== END | disposition home or self-care (01) ==
LOC: RAD 11:00
PROVIDERS: PCP Nurse Practitioner Family; Referring Provider Physician Assistant Medical; Visit Provider Physician Assistant Medical
DX: I49.5 Sick sinus syndrome (principal); I45.5 Other specified heart block; R55 Syncope and collapse; Z86.73 Personal history of transient ischemic attack (TIA), and cerebral infarction without residual deficits
CPT/HCPCS: 36415; 71046; 80048; 81001; 85027; 85610

== ENCOUNTER 2024-07-06 13:22 | Observation (INO) | payer MEDICARE, OTHER, SELFPAY ==
[2024-07-03 09:00] VITALS: BMI 29.4
[2024-07-06] VITALS (12 sets, daily range): BP systolic 123–153; BP diastolic 68–89; PULSE 73–91; RESP 16–18; TEMP 36.2–36.5; O2SAT 95–100
--- NOTE | 2024-07-06 13:01 | CL.IE_ITS ---
Patient: SUZANNE LUTZ Study Date: 07/06/2024 Performing: Maynor Perez MD : 1950 Age: 74 Gender: male PROCEDURES PERFORMED [id number])INITIAL PACER INSERT+DUAL LEADS INDICATIONS Sinoatrial node dysfunction/Sick sinus syndrome PROCEDURE DETAILS The patient was brought to the Catheterization Lab in the postabsorptive nonsedated state. Informed consent was obtained prior to the procedure. Local anesthetic was given subcutaneously to the left subclavian region with Lidocaine 2%. Access was achieved and a guidewire was advanced into the left subclavian vein. Incision was made to the left subclavicular area. A peel-away sheath was inserted into the left subclavian vein. PPM ventricular lead was inserted / positioned to right ventricular apex. PPM ventricular lead testing performed. PPM ventricular lead testing performed. A peel-away sheath was inserted into the left subclavian vein. PPM atrial lead was inserted / positioned to the right atrial appendage. PPM atrial lead testing performed. The Ventricular PM lead sutured in place with 2-0 Silk. The Atrial lead sutured in place with 2-0 Silk. PPM generator was attached to the lead(s) and inserted into the pocket. PPM generator was then interrogated by the numerical tool programmer. Device pocket was irrigated with antibiotic. Subcutaneous closure was completed with 3-0 Vicryl. Skin closure was completed with 4-0 Vicryl. Steri-strips applied to left subclavicular incision. Instrument, sponge, and needle counts were noted to be normal. The patient tolerated the procedure well. Estimated Blood Loss: < 10 mls IMPLANTED / EX-PLANTED DEVICES IMPLANTED DEVICE(S): PPM Generator - [employer] Assembler: [employer], Model # ESSENTIO MRI , Serial # [id number] PPM Atrial lead - Steam [employer] Turbine Assembler: [employer], Model # INGEVITY , Serial # [id number] PPM Ventricular lead - Steam [employer]urbine Assembler: [employer], Model # INGEVITY , Serial # [id number] DEVICE PARAMETERS ATRIAL LEAD PARAMETERS: P wave (mV) - 3.4 Current (mA) - 1.2 threshold (V) - 0.7 impedence (OHMS) - 602 VENTRICULAR LEAD PARAMETERS: 10V test; no diaphragmatic capture R wave (mV) - 6.9 current (mA) - 1.2 threshold (V) - 1.1 impedence (OHMS) - 884 DEVICE PARAMETERS: Mode - DDD lower rate - 60 upper rate - 130 CONCLUSIONS / RECOMMENDATIONS Device Conclusions: Successful implantation of a dual chamber pacemaker Device Recommendations: Follow up with Primary Care Physician PROCEDURE MEDICATIONS Fentanyl 50 mcg IV Versed 1 mg IV Versed 1 mg IV Oxygen: 2 L/min via nasal cannula Antibiotic given in appropriate timeframe. Ancef 2 Gm IV @ 07/06/2024 12:01:41 Signed By Maynor Perez MD On 07/06/2024 13:00:27 Maynor Perez MD
[2024-07-06] MEDS: Losartan Potassium 25 MG Tablet PO (22:16)
[2024-07-06] MEDS: Atorvastatin Calcium 40 MG Tablet PO (22:16)
[2024-07-07 04:16] VITALS: BP 126/74; PULSE 77; RESP 16; TEMP 36.5; O2SAT 94
--- NOTE | 2024-07-07 05:55 | RAD_ITS ---
PROCEDURE: CHEST 3 VIEW REASON FOR EXAM: Post permanent ICD/pacemaker. TECHNIQUE: Inspiration and expiration AP upright chest including lateral. COMPARISON: CTA chest dated 03/04 2024. FINDINGS: Lungs are clear of pneumonia and congestion. An area of discoid atelectasis, left mid lung. No pleural effusions, thickening, or pneumothorax. Heart and mediastinum are normal. Atherosclerotic and tortuous aorta. No hilar masses. Multilevel spondylosis. Cardiac pacer generator and leads. Cardiac monitoring leads overlie the chest wall. RAD/Chest 3 View IMPRESSION: No active cardiopulmonary disease. Subsegmental atelectasis, left lung. Reading Location: [facility]
[2024-07-07 07:47] VITALS: BP 124/81; PULSE 75; RESP 16; TEMP 36.4; O2SAT 95
[2024-07-07] MEDS: Aspirin E.C. 81 MG Tablet PO (07:57)
--- NOTE | 2024-07-07 08:03 | PCM.PN.CARD ---
Subjective Subjective Patient seen and evaluated. Appears to be doing well. No complaints Objective Data Vital Signs: Vital Signs Temp Pulse Resp BP Pulse Ox O2 Del Method 97.5 F L 75 16 124/81 H 95 Room Air 07/07/24 07:47 07/07/24 07:47 07/07/24 07:47 07/07/24 07:47 07/07/24 07:47 07/07/24 07:47 Oxygen Delivery Method Room Air Weight: 188 lb Body Mass Index (BMI) 29.4 Intake & Output: Intake and Output for Last 24 Hours 07/05/24 07/06/24 07/07/24 23:59 23:59 23:59 Intake Total 600 / 600 Balance 600 / 600 Cardiology Labs/Tests Rhythm: EKG: ECHO: Stress Test: Cardiac Cath: PCI: CT Surgery: Holter monitor: EPS: PPM: CXR: Chest CT Scan: Radiography Diagnostic Testing: Radiology Impression Chest X-Ray 07/07/24 05:55 IMPRESSION: No active cardiopulmonary disease. Subsegmental atelectasis, left lung. Reading Location: [facility] Physical Exam Const alert, oriented x3 and no apparent distress General Appearance: cooperative HEENT hearing grossly normal bilaterally Head and Scalp: atraumatic Eyes EOMs intact bilaterally Neck General: normal visual inspection Chest inspection of chest normal and palpation of chest normal Resp normal respiratory effort Auscultation: clear to auscultation bilaterally Cardio regular rate, regular rhythm, S1 normal heart sound and S2 normal heart sound Jugular Venous Distention: JVD GI normal to inspection, nondistended, normoactive bowel sounds Extremity normal capillary refill and no pedal edema Peripheral Pulses: Yes pulses 2+ throughout and femoral pulses present Skin no rashes or lesions noted Neuro oriented x3 and CN's II-XII intact bilaterally Psych Appearance: grossly normal and appropriate Assessment & Plan Assessment/Plan (1) Status post cardiac pacemaker procedure: PLAN: Status post permanent pacemaker implantation. Pacemaker appears to be in good position on x-ray. Interrogation demonstrates normal functioning. Will discharge for outpatient follow-up. (2) HTN (hypertension): QUALIFIERS: Hypertension type: primary hypertension Qualified Code(s): I10 - Essential (primary) hypertension PLAN: Continue current medical therapy.
--- NOTE | 2024-07-07 08:06 | PCM.DC ---
Discharge Instructions Diet Discharge Diet: No restrictions (as you feel able. No excessive stretching. No lifting your arm over your head (keep elbow below shoulder level) until seen for your pacemaker check. Do not lift your elbow away from your side until you are seen for your first visit. Keep the arm sling on if it helps remind you not to lift your arm.) DC O2, CPAP, BIPAP needs Home O2 Discharge instructions: No Dressing / Incision Discharge Activity: May Not Drive May shower in (days): 2 Additional Activity Instructions:: May shower or bathe on [day 3]. Do not scrub the incision or soak in the tub. Just wash with soap and let the water run over the incision. Gently pat dry with towel. Medications: Take your pain medication as directed. Refer to your discharge instruction sheet for a list of medications you are to take. Dressing / Incision Call your doctor if your incision/area has: Continuous Slow Oozing, Sudden Increased Bleeding, Increased Pain/ Swelling, Increased Redness, Foul Smelling Discharge and Swelling at the incision site Call your doctor if you observe: Fever of 101 or Higher, Shortness of breath, Dizziness, Fainting spells, Swelling in the ankles, Chest pain, Prolonged hiccupping and Increased palpitations (irregular heartbeat) Suture Line Care: Avoid Pulling/Pushing and Avoid Pinching/Bending Additional Dressing/Incision Instructions:: When dressing is removed, wash and dry incision. Keep covered with a light bandage if it is rubbing against your clothing. Do not cover the incision with an airtight bandage. Change the bandage daily. Do not remove steri strips. The strips will fall off on their own. Follow Up Care Please Follow Up With: Maynor Perez MD When: Pacer follow-up on July 13 at 10 AM Test Results: Test results from this visit will be discussed in further detail at your follow-up appointment, if applicable. Discharge Plan Admission Admit Date/Time: 07/06/24 13:22 Attending Provider: Maynor Perez Primary Care Provider: La Mcdonough Discharge Orders/Prescriptions Prescriptions: Continued atorvastatin 40 mg tablet 40 mg PO QHS cetirizine [Zyrtec] 10 mg tablet 10 mg PO QDAY PRN (Reason: allergy symptoms) aspirin [Adult Low Dose Aspirin] 81 mg tablet,delayed release (DR/EC) 81 mg PO DAILY bupropion HCl 150 mg Tablet Extended Release 24 Hr 150 mg PO DAILY Qty: 30 0RF amlodipine 5 mg tablet 5 mg PO DAILY Qty: 30 0RF losartan [Cozaar] 25 mg tablet 25 mg PO BID Qty: 60 0RF Referrals / Follow Up: La Mcdonough, PROCESS CHEESE COOKER-C [Primary Care Provider] - Disposition Disposition (needs filled in before D/C Order can be placed): Home, Self Care
--- NOTE | 2024-07-07 09:30 | CASEMGMT ---
Patient has order for discharge. RN CM in to discuss needs at discharge. Patient states son will be helping and checking on patient. Patient denies needs or help at discharge. Patient had no further questions or concerns.
[2024-07-07] MEDS: amLODIPine 5 MG Tablet PO (09:35)
[2024-07-07] MEDS: buPROPion (XL) 150 MG TABLET.XL PO (09:35)
[2024-07-07] MEDS: Losartan Potassium 25 MG Tablet PO (09:36)
--- NOTE | 2024-07-07 10:05 | PHA.DC.MR.R ---
Pharmacy [place] Med Reconciliation Pharmacy Service has performed discharge medication reconciliation for this patient. The patient's discharge medication list was reviewed for discrepancies and discrepancies were resolved. Medications at Discharge Home Medications aspirin 81 mg tablet,delayed release (Adult Low Dose Aspirin) 81 mg PO DAILY Heart health 01/28/24 amlodipine 5 mg tablet 5 mg PO DAILY BP #30 tabs 02/10/24 bupropion HCl 150 mg 24 hr tablet, extended release 150 mg PO DAILY mental health #30 tabs 02/10/24 losartan 25 mg tablet (Cozaar) 25 mg PO BID BP #60 tabs 02/10/24 atorvastatin 40 mg tablet 40 mg PO QHS cholesterol 05/18/24 cetirizine 10 mg tablet (Zyrtec) 10 mg PO QDAY PRN allergy symptoms 05/18/24
== END 2024-07-07 08:06 | disposition home or self-care (01) ==
LOC: PCU 13:26
PROVIDERS: Admitting Provider Internal Medicine Cardiovascular Disease; PCP Nurse Practitioner Family; Referring Provider Internal Medicine Cardiovascular Disease; Visit Provider Internal Medicine Cardiovascular Disease
DX: Z45.018 Encounter for adjustment and management of other part of cardiac pacemaker (principal); I49.5 Sick sinus syndrome; Z86.73 Personal history of transient ischemic attack (TIA), and cerebral infarction without residual deficits; Z79.899 Other long term (current) drug therapy; Z79.82 Long term (current) use of aspirin; I10 Essential (primary) hypertension; G62.9 Polyneuropathy, unspecified; F17.210 Nicotine dependence, cigarettes, uncomplicated; R55 Syncope and collapse; E78.00 Pure hypercholesterolemia, unspecified
CPT/HCPCS: 33208; 71047; 99152; 99153; 99221; C1894; G0378

== ENCOUNTER 2024-08-04 16:17 | Emergency (ER) | payer OTHER, MEDICARE, SELFPAY ==
[2024-08-04 16:18] VITALS: BP 161/81; PULSE 138; RESP 17; TEMP 36.9; O2SAT 92
--- NOTE | 2024-08-04 16:22 | EKG12_ITS ---
Test Reason : ALT LOC Blood Pressure : */* mmHG Vent. Rate : 133 BPM Atrial Rate : 133 BPM P-R Int : 156 ms QRS Dur : 94 ms QT Int : 290 ms P-R-T Axes : 38 39 45 degrees QTcB Int : 431 ms Sinus tachycardia Otherwise normal ECG Confirmed by Melvin Chapin ([id number]), advertising editor JEF DEWEY ([id number]) on 08/06/2024 6:54:54 AM Referred By: Confirmed By: Melvin Chapin
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
[2024-08-04 16:44] LABS: Absolute Neutrophil Count 4.2 X10^3/uL (2.0-7.7); Basophil# 0.11 X10^3/uL; Basophil% 1.1 % (0-1); Eosinophil# 0.56 X10^3/uL; Eosinophils% 5.6 % (0-5); Hemoglobin 14.4 g/dL (13.0-16.5); Lymphocyte % 40.8 % (19-41); Mean Corpuscular Hgb 32.7 pg (27.0-32.0); Mean Platelet Vol. 9.7 fl (6.2-12.0); Monocyte# 1.07 X10^3/uL; Monocyte% 10.6 % (0-10); NRBC Flagged by Analyzer 0 % (0-5); Neutrophil # 4.18 X10^3/uL (2.7-7.7); Neutrophil % 41.6 % (47-70); Platelet Count 210 K/mm3 (150-450); RBC Distribution Width CV 13.3 % (11.6-14.6); RBC Distribution Width SD 51.1 fl (35.1-43.9); Red Blood Count 4.41 M/mm3 (4.6-6.2); White Blood Count 10.1 K/mm3 (4.4-11.0)
--- NOTE | 2024-08-04 17:06 | CT_ITS ---
EXAM: BRAIN/HEAD WITHOUT CONTRAST CLINICAL HISTORY: New onset seizure COMPARISON: 03/04/2024 TECHNIQUE: Noncontrast images of the head with multiplanar reconstructions. Dose reduction techniques were used including intermediate exposure control (AEC),iterative reconstruction technique, and/or mA and/or KV dose adjustments based on patient's size. FINDINGS: CT HEAD FINDINGS: No acute intracranial hemorrhage, mass, mass effect, midline shift or pathologic extra-axial fluid collection. Nonspecific periventricular white matter changes are noted. Encephalomalacia is noted in the right cerebral hemisphere. No hydrocephalus. Age- appropriate cerebral volume and white matter. Visualized paranasal sinuses and mastoid air cells are clear. The calvarium is grossly intact. CT/Brain/Head without Contrast IMPRESSION: 1. No acute intracranial abnormality. 2. Age-appropriate volume loss and remote small vessel ischemic changes. 3. Stable right cerebral hemisphere encephalomalacia Reading Location: [facility]
[2024-08-04 17:17] VITALS: BP 131/76; PULSE 107; RESP 19; O2SAT 91
[2024-08-04 17:26] LABS: ALB/GLOB Ratio 1.5 RATIO (0.9-2.4); AST(SGOT) 29 U/L (<=37); Alanine Aminotransfer ALT/SGPT 27 U/L (<=46); Albumin, Serum 4.5 g/dL (3.4-4.8); Alkaline Phosphatase 84 U/L (40-129); Anion Gap 30 (5-15); BUN 12 mg/dL (4-19); BUN/Creat Ratio 9.6 RATIO (10-20); Calcium,Total 9.4 mg/dL (7.6-11.0); Carbon Dioxide 11.5 mmol/L (21.0-32.0); Chloride 101 mmol/L (98-108); Creatinine, Serum 1.26 mg/dL (0.70-1.20); EST Glomerular Filtration Rate 59 (>60); Globulin 2.9 g/dL (2.2-4.2); Glucose 109 mg/dL (70-99); Magnesium 2.3 mg/dL (1.5-2.2); Potassium 3.9 mmol/L (3.3-5.1); Protein, Total 7.5 g/dL (5.9-8.4); Sodium Level 142 mmol/L (133-145); Total Bilirubin 0.24 mg/dL (0.00-1.30)
[2024-08-04 17:40] VITALS: BMI 29.1
[2024-08-04 18:00] VITALS: BP 136/89; PULSE 96; RESP 22; O2SAT 93
[2024-08-04] MEDS: WATER IV (18:35)
[2024-08-04] MEDS: VALPROATE SODIUM IV (18:35)
[2024-08-04] MEDS: DEXTROSE 5% IV (18:35)
[2024-08-04 19:00] VITALS: BP 149/97; PULSE 101; RESP 20; O2SAT 92
[2024-08-04 19:31] VITALS: BP 112/76; PULSE 98; RESP 20; TEMP 36.7; O2SAT 94
[2024-08-04 20:00] VITALS: BP 130/82; PULSE 95; RESP 18; O2SAT 98
== END 2024-08-04 20:01 | disposition home or self-care (01) ==
PROVIDERS: Emergency Provider Emergency Medicine; PCP Nurse Practitioner Family; Visit Provider Emergency Medicine
DX: R56.9 Unspecified convulsions (principal); I49.5 Sick sinus syndrome; I73.9 Peripheral vascular disease, unspecified; E78.5 Hyperlipidemia, unspecified; I10 Essential (primary) hypertension; F17.210 Nicotine dependence, cigarettes, uncomplicated; Z95.0 Presence of cardiac pacemaker; Z79.82 Long term (current) use of aspirin; Z79.899 Other long term (current) drug therapy; Z86.73 Personal history of transient ischemic attack (TIA), and cerebral infarction without residual deficits
CPT/HCPCS: 70450; 80053; 83735; 85025; 93005; 96365; 99285; A4216

== ENCOUNTER → 2025-04-16 | Outpatient (CLI) | payer MEDICAID, SELFPAY ==
--- NOTE | 2025-04-16 07:22 | CDU_ITS ---
Reason For Study Reason For Study: Carotid stenosis Rt. Velocities/BP Lt. Velocities/BP Prox CCA 69.4/11.5 cm/sec. Prox CCA 72.7/15.1 cm/sec. Mid CCA 62.6/13.5 cm/sec. Mid CCA 71.8/17.7 cm/sec. Dist CCA 59.8/14.5 cm/sec. Dist CCA 65.7/16.8 cm/sec. Prox ICA 37.1/8.8 cm/sec. Prox ICA 63.1/14.2 cm/sec. Mid ICA 79.6/23.9 cm/sec. Mid ICA 70.9/18.6 cm/sec. Dist ICA 64.5/13.5 cm/sec. Dist ICA 64.3/18.2 cm/sec. Rt. ICA/CCA = 1.27. Lt. ICA/CCA = 0.99. Prox ECA 65.5/9.7 cm/sec. Prox ECA 63.1/6.4 cm/sec. Rt. Vert. 44.8/7.2 cm/sec. Lt. Vert. 44.7/12.6 cm/sec. Right Extracranial There is intimal thickening but no significant atherosclerotic plaque noted in the right common carotid artery. There is heterogeneous, irregular atherosclerotic plaque noted in the right internal carotid artery. There is heterogeneous, irregular atherosclerotic plaque noted in the right external carotid artery. Antegrade flow is noted in the right vertebral artery. Left Extracranial There is homogeneous, smooth atherosclerotic plaque noted in the left common carotid artery. There is heterogeneous, irregular atherosclerotic plaque noted in the left internal carotid artery. There is heterogeneous, irregular atherosclerotic plaque noted in the left external carotid artery. Antegrade flow is noted in the left vertebral artery. Procedure Carotid Duplex [id number]. This is a Carotid Duplex examination using B-mode, color flow and specral Doppler. Exam performed in department. VL/Carotid Duplex Ultrasound Interpretation Summary Mild (<50%) stenosis right extracranial internal carotid. Mild (<50%) stenosis left extracranial internal carotid. Patent and antegrade vertebrals bilaterally. Ordering Physician: Fanny Bowie Referring Physician: Melvin Lal Performed By: Jessenia Milan RVT
--- NOTE | 2025-04-16 07:30 | CT_ITS ---
PROCEDURE: BRAIN/HEAD WITHOUT CONTRAST 04/16/2025 REASON FOR EXAM: HX RIGHT MCA CVA 2023; EPILEPSY TECHNIQUE: Procedure Code: CTBR Modality: CT Procedure: BRAIN/HEAD WITHOUT CONTRAST Coronal and Sagittal reconstruction series were provided. One or more dose reduction techniques were used (e.g., Automated exposure control, adjustment of the mA and/or kV according to patient size, use of iterative reconstruction technique. COMPARISON: 08/04/2024. FINDINGS: No acute intracranial hemorrhage. A large area of encephalomalacia in the right MCA territory is compatible with an old infarction, unchanged from the previous study. [place] areas of hypodensity are also noted within the right cerebral white matter, likely representing chronic microvascular ischemic changes, mildly increased since the previous study. Moderate generalized atrophy with commensurate ventriculomegaly, mildly progressed since the previous study. Asymmetric left cerebellar atrophy, unchanged from the previous study and likely related to the old right MCA territory infarction. CT/Brain/Head without Contrast IMPRESSION: No acute intracranial CT abnormality. Mild increase in the chronic microvascular ischemic changes within the right ce rebral white matter. Otherwise stable nonacute intracranial findings. Reading Location: [id number]
== END | disposition home or self-care (01) ==
PROVIDERS: PCP General Practice; Referring Provider Psychiatry & Neurology Neurology; Visit Provider Physician Assistant
DX: I65.22 Occlusion and stenosis of left carotid artery (principal); G40.909 Epilepsy, unspecified, not intractable, without status epilepticus; Z86.73 Personal history of transient ischemic attack (TIA), and cerebral infarction without residual deficits
CPT/HCPCS: 70450; 93880; 95819